=== PATIENT | female | born 2000 | race Two or more races ===

== ENCOUNTER 2020-05-07 22:20 | Emergency (ER) | payer OTHER, SELFPAY ==
--- NOTE | 2020-05-07 | XR_ITS ---
EXAMINATION: ABDOMEN 1 VIEW CLINICAL INFORMATION: Overdose. COMPARISON: None. TECHNIQUE: A supine view of the abdomen is provided. FINDINGS: There are no dilated loops of small bowel. There are no air-fluid levels. There is a moderate amount of stool within the ascending colon. The visualized lung bases are clear. The osseous structures are unremarkable. IMPRESSION: Moderate amount of stool within the ascending colon. No evidence for obstruction.
--- NOTE | 2020-05-07 | ECG_ITS ---
Test Reason : OVERDOSE Blood Pressure : / mmHG Vent. Rate : 075 BPM Atrial Rate : 075 BPM P-R Int : 130 ms QRS Dur : 080 ms QT Int : 420 ms P-R-T Axes : 043 050 030 degrees QTc Int : 469 ms Normal sinus rhythm Normal ECG No previous ECGs available Referred By: Vickie Brice Electronically Signed By:RUTHIE BECKFORD
--- NOTE | 2020-05-07 22:39 | ED_ITS ---
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 Tablet 8 mg PO BEDTIME RF: 0 loratadine 10 mg Tablet 10 mg PO DAILY RF: 0 magnesium oxide 400 mg magnesium Tablet 400 mg PO DAILY RF: 0 <Vickie Brice NP - Last Filed: 05/08/20 03:21>
[2020-05-07 22:40] VITALS: BP 122/72; PULSE 74; RESP 18; TEMP 37.1; O2SAT 98; BMI 48.4
--- NOTE | 2020-05-07 22:41 | XR_ITS ---
EXAMINATION: CHEST 1 VIEW CLINICAL INFORMATION: Overdose. COMPARISON: None. TECHNIQUE: An AP view of the chest is provided. FINDINGS: The cardiac silhouette is not enlarged. The mediastinal and hilar contours are unremarkable. There are neither pleural effusions nor pneumothoraces. There are no consolidations. The osseous structures are unremarkable. IMPRESSION: No evidence for acute disease.
[2020-05-07 22:49] VITALS: BP 103/71; PULSE 74; RESP 20; O2SAT 99
[2020-05-07 23:37] LABS: MANUAL DIFF FLAG NO
[2020-05-07 23:40] LABS: Basophils Absolute Auto 0.1 X10*3/uL (0.0-0.2); Basophils Percent Auto 0.4 % (0-2); Eosinophils Absolute Auto 0.2 X10*3/uL (0.0-0.4); Eosinophils Percent Auto 1.8 % (0-4); Hematocrit 38.6 % (37-47); Hemoglobin 12.7 g/dl (12.0-16.0); Imm Gran Abs Auto 0.05 X10*3/uL (0.00-0.03); Imm Gran Pct Auto 0.4 % (0.0-0.4); Lymphocytes Absolute Auto 3.5 X10*3/uL (1.2-4.9); Lymphocytes Percent Auto 27.5 % (20-40); Mean Corpuscular HGB Conc 32.9 g/dl (31.0-35.0); Mean Corpuscular Volume 91.3 fL (80-98); Mean Platelet Volume 11.4 fL (9.4-12.3); Monocytes Absolute Auto 0.9 X10*3/uL (0.1-1.2); Monocytes Percent Auto 7.1 % (2-11); Neutrophils Absolute Auto 7.9 X10*3/uL (2.0-8.3); Neutrophils Percent Auto 62.8 % (45-73); Platelet Count 246 X10*3/uL (160-400); Red Blood Count 4.23 X10*6/uL (4.20-5.50); Red Cell Distribution Width 13.5 % (11.0-16.0); White Blood Count 12.6 X10*3/uL (4.8-10.8)
[2020-05-07 23:52] LABS: Glucose Urine UA NEG (NEG); Leukocyte Esterase Urine NEG (NEG); Nitrite Urine NEG (NEG); Specific Gravity - Urine 1.015 (1.005-1.025); Urine Blood 2+ (NEG); Urine Ketones NEG (NEG); Urine Protein NEG (NEG-TRACE)
[2020-05-07 23:54] LABS: Appearance Urine CLEAR; Color Urine YELLOW
[2020-05-07 23:58] LABS: Calcium 8.9 mg/dL (8.4-10.2)
[2020-05-08 00:07] LABS: Acetaminophen LAB < 1 mcg/mL (<30); Alanine Aminotransferase 9 U/L (0-31); Albumin Level 4.2 g/dL (3.5-5.0); Alkaline Phosphatase 99 U/L (39-117); Anion Gap 10 (12-20); Aspartate Amino Transferase 11 U/L (5-31); Bilirubin Direct < 0.2 mg/dL (0.0-0.5); Bilirubin Total 0.2 mg/dL (0.0-1.0); Blood Urea Nitrogen 12 mg/dL (9-16); Calcium 8.9 mg/dL (8.4-10.2); Carbon Dioxide 27 mmol/L (22-29); Chloride 105 mmol/L (96-108); Creatinine Clr Calc Pharmacy 145.3; Estimated Glomerular Filt Rate > 60; Glucose Random 94 mg/dL (60-115); Lipase 41 U/L (8-78); Magnesium 1.9 mg/dL (1.6-2.6); Potassium 4.1 mmol/l (3.3-5.1); Salicylate < 5.0 mg/dL (15-30); Sodium 138 mmol/L (135-145); Total Protein 6.9 g/dL (6.5-8.0)
[2020-05-08 00:08] LABS: Amphetamine Screen Urine Not Detected (Not Detect); Barbiturates, Urine Not Detected (Not Detect); Benzodiazepines Screen Urine Not Detected (Not Detect); Cannabinoid Screen Urine Not Detected (Not Detect); Cocaine Screen Urine Not Detected (Not Detect); Opiate Screen Urine Not Detected (Not Detect); Phencyclidine Screen Urine Not Detected (Not Detect); Troponin-I High Sensitivity < 3.5 ng/L (<3.5-17.0)
[2020-05-08 00:13] LABS: HCG Quantitative < 2 mIU/mL
[2020-05-08 01:06] LABS: Prothrombin Time 11.5 SEC (10.8-13.0)
[2020-05-08 01:08] VITALS: BP 100/70; PULSE 77; RESP 16; O2SAT 98
[2020-05-08 01:09] LABS: Partial Thromboplastin Time 33.8 SEC (24.1-38.0)
--- NOTE | 2020-05-08 01:15 | PC.NURSE ---
Pt continue to not respond to question on stimulation. vitals are stable. provider is aware and will continue monitor. Pt remain on tele monitor. Position controlled was called, continue to monitor for 6 hours.
[2020-05-08 01:31] LABS: Squamous Epithelial Cell Urine 1+ /LPF; WBC Urine 0 /HPF (0-4)
--- NOTE | 2020-05-08 02:15 | PC.NURSE ---
pt taken to x-ray. pt able to assist in transfer. pt reports she took too much of her sleeping medications because she hasn't slept for several nights. pt is clam and cooperative.
--- NOTE | 2020-05-08 02:31 | PC.NURSE ---
[facility] called, Documents faxed over. They will come in to see pt in the morning.
--- NOTE | 2020-05-08 04:09 | PC.NURSE ---
pt is sleeping at this time.
--- NOTE | 2020-05-08 04:16 | ECG_ITS ---
Test Reason : SI,OVERDOSE Blood Pressure : / mmHG Vent. Rate : 068 BPM Atrial Rate : 068 BPM P-R Int : 148 ms QRS Dur : 076 ms QT Int : 450 ms P-R-T Axes : 043 058 050 degrees QTc Int : 478 ms Normal sinus rhythm Normal ECG When compared with ECG of 07-MAY-2020 23:19, No significant change was found Referred By: Natalya Love Electronically Signed By:RUTHIE BECKFORD
--- NOTE | 2020-05-08 06:29 | PC.NURSE ---
WALK TRIAL, PT UNSTEADY AND STILL SLEEPY. PROVIDER IS AWARE AND CHARGE NURSE
[2020-05-08 06:33] VITALS: BP 90/60; PULSE 71; RESP 16; O2SAT 99
--- NOTE | 2020-05-08 11:17 | PC.NURSE ---
PT AMBULATORY TO THE POD WITH SECURITY PRESENT PT IS CALM AND CCOPERATIVE
--- NOTE | 2020-05-08 11:22 | PC.NURSE ---
Report received. PT ambulates in the pod with steady gait. Dispo pending.
--- NOTE | 2020-05-08 13:41 | PC.NURSE ---
PT is watching TV in the community room. Calm and cooperative with staff. No complaints at this time.
--- NOTE | 2020-05-08 15:23 | PC.NURSE ---
PT is on the phone attempting to call N. She was upset with plan after explaining it with her. Inpatient bed search in progress.
[2020-05-08 15:52] VITALS: BP 101/71; PULSE 74; RESP 16; TEMP 36.1
--- NOTE | 2020-05-08 18:23 | PC.NURSE ---
PT resting in bed. Calm and cooperative. Bed search in progress.
[2020-05-08] MEDS: traZODone HCL 100 MG TABLET 300 MG PO (21:20)
[2020-05-08] MEDS: Perphenazine 8 MG TABLET PO (21:20)
[2020-05-08] MEDS: Melatonin 3 MG TABLET PO (21:21)
--- NOTE | 2020-05-08 21:49 | PC.NURSE ---
pt cooperative, up once to use bathroom and inquire about her night medications. pharmacy reports that pt's clonidine and hydroxizine are non formulary and need to be changed?
[2020-05-08 22:09] VITALS: PULSE 78; RESP 16; O2SAT 96
[2020-05-09] VITALS (7 sets, daily range): BP systolic 93–116; BP diastolic 52–83; PULSE 75–89; RESP 16–20; TEMP 36.1–37.2; O2SAT 97–99
--- NOTE | 2020-05-09 07:14 | PC.NURSE ---
Report received. PT is sleeping in bed. Breathing is even and unlabored. Inpatient bed search in progress.
--- NOTE | 2020-05-09 09:16 | PC.NURSE ---
PT is sleeping in her bed. Breathing is even and unlabored. No other complaints.
--- NOTE | 2020-05-09 10:18 | PC.NURSE ---
eMAR updated by pharmacy. Non-formulary meds not given.
[2020-05-09] MEDS: Loratadine 10 MG TABLET PO (10:28)
[2020-05-09] MEDS: Magnesium Oxide 400 MG TABLET PO (10:28)
[2020-05-09] MEDS: FLUoxetine HCl 10 MG CAPSULE PO (10:28)
[2020-05-09] MEDS: hydrOXYzine HCL 50 MG TABLET PO ×3 (10:28→20:28)
--- NOTE | 2020-05-09 11:16 | PC.NURSE ---
PT sleeping in bed. Breathing is even and unlabored. No other complaints at this time.
--- NOTE | 2020-05-09 13:19 | PC.NURSE ---
PT is on the phone. Calm and cooperative. Informed on plan to be reevaluated by [facility] in the morning. No complaints at this time.
--- NOTE | 2020-05-09 17:33 | PC.NURSE ---
PT sitting in a lounge chair in the community room watching TV. Calm and cooperative. No complaints at this time.
[2020-05-09] MEDS: traZODone HCL 100 MG TABLET 300 MG PO (20:28)
[2020-05-09] MEDS: Perphenazine 8 MG TABLET PO (20:28)
[2020-05-09] MEDS: Melatonin 3 MG TABLET PO (20:29)
--- NOTE | 2020-05-09 20:32 | PC.NURSE ---
PATIENT OUT AND CAME TO DESK 3 TIMES STATING THAT SHE WANTED TO GO HOME. I EXPLAINED THAT SHE WAS ON SEC 12 AND WOULD BE RE-EVALUATED IN THE MORNING. PATIENT MEDICATED PER EMAR NOTED.
--- NOTE | 2020-05-09 20:38 | PC.NURSE ---
PATIENT NOT GIVEN NON FORUMULARY MEDICATION PATIENT IN BED RESTING AND NOT NECESSARY
--- NOTE | 2020-05-09 21:30 | PC.NURSE ---
SPOKE WITH PHARMACY REGARDING THIS MEDICATION ORDER. PER PHARMACY THIS MEDICATION IS NON FORMULARY BECAUSE IT IS EXTENDED RELEASE CLONIDINE. PATIENT WOULD HAVE TO BRING THIS IN FROM HOME. PATIENT IS CURRENTLY SLEEPING AT THIS TIME
--- NOTE | 2020-05-09 22:03 | PC.NURSE ---
HYDROXYZINE ON Oct. PATIENT WAS GIVEN HER DOSE SCHEDULED AT 2100. THE OTHER ORDER FOR HYDROXYZINE
[2020-05-10 01:09] VITALS: RESP 18
[2020-05-10 02:00] VITALS: RESP 15
[2020-05-10 04:01] VITALS: RESP 18
[2020-05-10 06:26] VITALS: BP 111/65; PULSE 88; RESP 18; TEMP 36.3; O2SAT 100
--- NOTE | 2020-05-10 07:21 | PC.NURSE ---
REPORT RECIEVED. PT CURRENTLY SLEEPING, RESPIRATIONS EVEN AND UNLABORED, IN NO APPARENT DISTRESS. PT IS YVETTE FOLLOW UP BY N THIS MORNING.
--- NOTE | 2020-05-10 09:40 | PC.NURSE ---
Pt calm and cooperative, denies complaints, denies SI/HI, states she just wants to go home. pt speaking with bhn at this time.
[2020-05-10 10:09] VITALS: BP 123/88; PULSE 100; RESP 17; TEMP 36.9; O2SAT 99
[2020-05-10] MEDS: Loratadine 10 MG TABLET PO (10:09)
[2020-05-10] MEDS: FLUoxetine HCl 10 MG CAPSULE PO (10:09)
[2020-05-10] MEDS: hydrOXYzine HCL 50 MG TABLET PO (10:09)
[2020-05-10 13:46] VITALS: BP 126/80; PULSE 119; RESP 16; TEMP 36.4; O2SAT 97
== END 2020-05-10 15:00 | disposition home or self-care (01) ==
PROVIDERS: Nurse Practitioner Family; Emergency Provider Student in an Organized Health Care Education/Training Program
DX: F33.2 Major depressive disorder, recurrent severe without psychotic features (principal); F43.12 Post-traumatic stress disorder, chronic; R45.851 Suicidal ideations; Z91.5 Personal history of self-harm; Z79.899 Other long term (current) drug therapy
CPT/HCPCS: 36415; 71045; 74018; 80048; 80076; 80307; 81001; 82310; 83690; 83735; 84484; 84702; 85025; 85610; 85611; 85730; 85732; 93005; 93010; 99285; 99291; G0480

== ENCOUNTER 2023-09-10 20:04 | Inpatient (IN) | payer MEDICAID, SELFPAY ==
[2023-09-10] VITALS (7 sets, daily range): BP systolic 104–164; BP diastolic 56–108; PULSE 87–97; RESP 18–24; TEMP 36.7–36.8; O2SAT 97–98; BMI 45.6
--- NOTE | ~2023-09-10 | FL_ITS ---
EXAMINATION: XR FLUOROSCOPY WITH IMAGES CLINICAL INFORMATION: Fluoroscopic guidance was provided to Dr. Kennedy during extraction of foreign body (razor blade) from the colon. COMPARISON: Correlation made with KUB dated earlier same day at 7:00 AM. TECHNIQUE: Fluoroscopy Supervised By: Dr. Francesco Kennedy. Fluoroscopy Time: 123.7 seconds. Cumulative Dose: 54.9 mGy. Images: 3. FINDINGS: 3 images intraoperative submitted. The first image demonstrates a curved hemostat directly abutting a linear razor blade within the region of the hepatic flexure. The second image demonstrates presence of a razor blade in the pelvis overlying the distal sigmoid/rectal region. The third submitted image shows a gaseous distended splenic flexure, with no evidence of radiopaque foreign body seen. FL/FL guidance in OR IMPRESSION: Intraoperative fluoroscopic guidance images as above.
--- NOTE | ~2023-09-10 | XR_ITS ---
EXAMINATION: XR ABDOMEN KUB CLINICAL INDICATION: Razor blades and GI tract COMPARISON: KUB to 624 at 3:32 AM TECHNIQUE: AP view of the abdomen. XR/XR KUB FINDINGS/IMPRESSION: There are 3 amberly ablates visualized at this time on the right upper quadrant and right epigastric region. They could very well be within the right colon or proximal small bowel loops. Recommend continued follow-up
--- NOTE | ~2023-09-10 | XR_ITS ---
EXAMINATION: XR ABDOMEN KUB CLINICAL INDICATION: Ingested foreign body follow-up COMPARISON: 09/11/2023 TECHNIQUE: AP view of the abdomen. FINDINGS: The previously noted ingested foreign bodies which were seen predominantly in the right upper quadrant on yesterday's exam are again observed. 2 radiodense foreign bodies remain in the right colon and have the appearance of a razor blades. One previously noted foreign body now situated in the descending colon. XR/XR KUB IMPRESSION: 1 of the 3 ingested razor blades now overlies the descending colon.
--- NOTE | ~2023-09-10 | CT_ITS ---
EXAMINATION: CT ABDOMEN AND PELVIS WITHOUT CONTRAST CLINICAL INFORMATION: Question perforation. Swallowed bleed. COMPARISON: None available. TECHNIQUE: Multidetector volumetric imaging was performed from the superior aspect of the liver through the pubic symphysis. Sagittal and coronal reformatted images were obtained on the technologist's workstation. This CT examination was performed using dose optimization techniques as appropriate, variously including the following: *Automated exposure control *Adjustment of mA and/or kV according to patient size (this includes techniques or standardized protocols for targeted exams where dose is matched to indication/reason for exam; i.e. extremities or head) *Use of iterative reconstruction technique DLP: 9086 mGy-cm FINDINGS: The exam is limited secondary to patient breathing artifact and motion throughout the exam. LUNG BASES: The visualized lung bases are unremarkable. LIVER, GALLBLADDER, AND BILIARY TREE: The liver is normal in size, shape, and attenuation. No focal hepatic lesion or biliary ductal dilatation is present. The gallbladder is unremarkable with no evidence of radiopaque gallstones, gallbladder wall thickening, or obvious pericholecystic inflammatory changes. PANCREAS: Unremarkable. SPLEEN: Unremarkable. ADRENAL GLANDS: Unremarkable. KIDNEYS AND URETERS: The kidneys are normal in size, shape, and attenuation. No hydronephrosis, hydroureter, or calculi seen. No perinephric stranding. BLADDER: Unremarkable GASTROINTESTINAL TRACT: There is moderate stool and gas seen throughout the colon and small bowel without distention. There are 2 radiopaque blades seen in the stomach producing beam hardening artifact. There is no free air seen in the abdomen. There is no free fluid seen either. ABDOMINAL WALL: No significant hernia is appreciated. LYMPH NODES: Normal. VASCULAR: Unremarkable. PELVIC VISCERA: The uterus is anteverted and appears unremarkable. OSSEOUS STRUCTURES: No gross bony abnormality. CT/CT abdomen pelvis wo IV con IMPRESSION: 2 radiopaque blades seen in the stomach producing beam hardening artifact. There is no free air or free fluid seen at this time on this limited exam. Fleischner guidelines were followed.
--- NOTE | ~2023-09-10 | XR_ITS ---
EXAMINATION: XR ABDOMEN KUB CLINICAL INDICATION: Swallowed blades.. COMPARISON: None available. TECHNIQUE: AP view of the abdomen. FINDINGS: There are 2 radiopaque bladelike material seen in the stomach. No additional radiopaque foreign body seen except for scattered stool and gas seen in colon and gas in the small bowel loops without distention. No organomegaly. No gross bony abnormality. XR/XR KUB IMPRESSION: 2 radiopaque linear blade shaped foreign body seen in the stomach. The bowel gas pattern is nonspecific.
--- NOTE | ~2023-09-10 | CT_ITS ---
EXAMINATION: CT ABDOMEN AND PELVIS WITHOUT CONTRAST CLINICAL INFORMATION: Follow-up for ingested foreign body COMPARISON: 09/10/2023 CT. 11/06/03 and 09/11/03 KUB TECHNIQUE: Multidetector volumetric imaging was performed from the superior aspect of the liver through the pubic symphysis. Sagittal and coronal reformatted images were obtained on the technologist's workstation. Study limited by patient's inability to cooperate and remain still. This CT examination was performed using dose optimization techniques as appropriate, variously including the following: *Automated exposure control *Adjustment of mA and/or kV according to patient size (this includes techniques or standardized protocols for targeted exams where dose is matched to indication/reason for exam; i.e. extremities or head) *Use of iterative reconstruction technique DLP: 1145 mGy-cm FINDINGS: ANIMAL CONTROL LICENSING WORKER: Nonspecific bowel pattern. Linear metallic densities right upper, right mid and left upper quadrants. Pelvic phleboliths. LUNG BASES: Nonenlarged heart. No pericardial effusion. 1 evaluation of the lung bases limited by respiratory motion.. LIVER, GALLBLADDER, AND BILIARY TREE: The liver is normal in size, shape, and attenuation. No focal hepatic lesion or biliary ductal dilatation is present. The gallbladder is unremarkable with no evidence of radiopaque gallstones, gallbladder wall thickening, or obvious pericholecystic inflammatory changes. PANCREAS: Unremarkable. SPLEEN: Unremarkable. ADRENAL GLANDS: Unremarkable. KIDNEYS AND URETERS: The kidneys are normal in size, shape, and attenuation. No hydronephrosis or hydroureter. 2-3 mm nonobstructing left upper pole renal calculus. No perinephric stranding. BLADDER: Unremarkable. GASTROINTESTINAL TRACT: Stomach is not ideally distended. No CT evidence of bowel obstruction. Hyperdensities identified medial aspect of the cecum, axial 3:59, coronal 6:30, question anastomotic suture line. Region was poorly evaluated on previous CT due to extensive motion artifact and retained fecal material. 3 separate ingested metallic foreign bodies are seen. One in the cecum and another in the hepatic flexure with paralleling metallic double hernandez. The one in the mid to distal transverse colon with single linear metallic wall. Descending colon is decompressed. PERITONEUM: No free air or free fluid. ABDOMINAL WALL: No significant hernia is appreciated. LYMPH NODES: Normal. VASCULAR: Unremarkable. PELVIC VISCERA: Unremarkable. Pelvic phleboliths. OSSEOUS STRUCTURES: Unremarkable. CT/CT abdomen pelvis wo IV con IMPRESSION: Study limitations due to patient's inability to cooperate. 3 ingested foreign bodies, 2 within the ascending colon, one in the transverse colon. No morphologic characteristics consistent with razor blades. Correlate clinically regarding hyperdensities at the medial base of the cecum, question previous appendectomy. 2-3 mm nonobstructing left renal calculus. Fleischner guidelines were followed.
--- NOTE | ~2023-09-10 | XR_ITS ---
EXAMINATION: XR ABDOMEN KUB CLINICAL INDICATION: Foreign body ingestion COMPARISON: CT abdomen and pelvis 09/10/2023. TECHNIQUE: AP view of the abdomen. FINDINGS: Previously seen 2 radiopaque metallic blades in the stomach have progressed and lying the right upper quadrant likely in the duodenum/proximal small bowel. However the also overlie the right colon/hepatic flexure. Continued follow-up KUB can be performed. No organomegaly. No bony abnormality. XR/XR KUB IMPRESSION: Progression of 2 radiopaque metallic foreign bodies from stomach into the proximal small bowel or duodenum. However there are also overlying the splenic flexure and possibly of midline within the splenic flexure is not excluded. Recommend continued follow-up.
--- NOTE | ~2023-09-10 | XR_ITS ---
EXAMINATION: XR CHEST CLINICAL INFORMATION: Swallowed razor blades COMPARISON: None available. TECHNIQUE: Frontal view of the chest was obtained. FINDINGS: The lungs are hypoexpanded and clear. The heart size and pulmonary vascularity is normal. There is a small metallic foreign body in the left epigastric region likely in the stomach. No gross bony abnormality seen. XR/XR chest 1V IMPRESSION: Small metallic foreign body in the left epigastric region likely in the stomach. No acute cardiopulmonary process.
--- NOTE | ~2023-09-10 | XR_ITS ---
EXAMINATION: XR ABDOMEN KUB CLINICAL INDICATION: Reassess number/location of foreign bodies COMPARISON: 09/12/2023 TECHNIQUE: AP view of the abdomen. FINDINGS: Currently, the 3 foreign bodies all appear to be in the region of the right lower quadrant, with 2 of them in close proximity to each other overlying the region of the right sacroiliac joint, and the third just above the level of the iliac crest. Overall bowel gas pattern is nonobstructive. There is limited assessment for free air with supine positioning. Multiple phleboliths again noted in the lower pelvis. XR/XR KUB IMPRESSION: 3 foreign bodies overlying the region of the right lower quadrant. It is possible that the 2 more inferior objects in close proximity to each other overlying the right sacroiliac joint may within the tortuous sigmoid colon, though this is difficult to precisely localize radiographically. The third object which lies superior to this may be within the ascending colon.
--- NOTE | ~2023-09-10 | FL_ITS ---
EXAMINATION: XR FLUOROSCOPY WITH IMAGES CLINICAL INFORMATION: Fluoroscopic guidance was provider to Dr. Kennedy during extraction of foreign body (2 razor blades) from the colon. COMPARISON: CT scan abdomen and pelvis 09/10/2023 TECHNIQUE: Fluoroscopy Supervised By: Dr. Francesco Kennedy. Fluoroscopy Time: 90.4 seconds. Cumulative Dose: 35.26 mGy. DAP: N/A on this C-arm Images: 4. FINDINGS: 4 intraoperative images were submitted. The first image demonstrates 2 razor blades in the right upper quadrant.. The second image demonstrates presence of 2 razor blades blades in the hepatic flexure. The third and fourth images demonstrates a tube within an air-filled viscus in the right upper quadrant/epigastric region with 2 razor blades r blade seen in the hepatic flexure. FL/FL guidance in OR IMPRESSION: Intraoperative fluoroscopic guidance images as above.
--- NOTE | ~2023-09-10 | XR_ITS ---
EXAMINATION: XR ABDOMEN KUB CLINICAL INDICATION: Follow-up for: Foreign bodies. COMPARISON: Several KUB NASCET abdomen 09/11/2023. TECHNIQUE: AP view of the abdomen. FINDINGS: There is significant gaseous prominence of colon with none of the previously visualized radiopaque foreign body at this time. XR/XR KUB IMPRESSION: No radiopaque razor blade seen in the colon. The entire colon is distended with gas.
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
--- NOTE | 2023-09-10 20:22 | ECG_ITS ---
Test Reason : SI Blood Pressure : / mmHG Vent. Rate : 096 BPM Atrial Rate : 096 BPM P-R Int : 128 ms QRS Dur : 076 ms QT Int : 384 ms P-R-T Axes : 061 055 035 degrees QTc Int : 485 ms Normal sinus rhythm Prolonged QT Abnormal ECG When compared with ECG of 08-MAY-2020 04:16, No significant change was found Referred By: Monet Hankins Electronically Signed By:ENOCH RESTREPO
[2023-09-10] MEDS: Haloperidol Lactate 5 MG/ML VIAL IM (20:38)
[2023-09-10] MEDS: diphenhydrAMINE HCL 50 MG/ML VIAL IM (20:39)
[2023-09-10] MEDS: Prochlorperazine Edisylate 10 MG/2 ML VIAL IM (20:39)
[2023-09-10] MEDS: Morphine Sulfate 4 MG/ML CARTRIDGE IM (20:39)
[2023-09-10] MEDS: 0.9 % Sodium Chloride 1,000 ML 999 ML IVCONT ×2 (20:43→22:59)
[2023-09-10 20:55] LABS: MANUAL DIFF FLAG NO
[2023-09-10 21:00] LABS: Basophils Percent Auto 0.3 % (0-2); Eosinophils Absolute Auto 0.1 X10*3/uL (0.0-0.4); Hematocrit 37.8 % (37.0-47.0); Hemoglobin 12.7 g/dl (12.0-16.0); Imm Gran Abs Auto 0.02 X10*3/uL (0.00-0.03); Imm Gran Pct Auto 0.2 % (0.0-0.4); Lymphocytes Percent Auto 24.6 % (20-40); Mean Corpuscular HGB Conc 33.6 g/dl (31.0-35.0); Mean Corpuscular Hemoglobin 29.2 pg (27.0-33.0); Mean Corpuscular Volume 86.9 fL (80.0-98.0); Mean Platelet Volume 10.4 fL (9.4-12.3); Monocytes Absolute Auto 0.7 X10*3/uL (0.1-1.2); Monocytes Percent Auto 5.6 % (2-11); Neutrophils Absolute Auto 8.4 x10*3/uL (2.0-8.3); Neutrophils Percent Auto 68.3 % (45-73); Platelet Count 274 X10*3/uL (160-400); Red Blood Count 4.35 X10*6/uL (4.20-5.50); Red Cell Distribution Width 13.4 % (11.0-16.0); White Blood Count 12.3 X10*3/uL (4.8-10.8)
--- NOTE | 2023-09-10 21:02 | MHC.EDTECH ---
This tech took over care of patient, patient was changed into crisis attire,placed on the conveyor monitor,vitals taken, EKG taken per order and signed by provider,labs and blood cultures obtained and sent to lab.
[2023-09-10 21:06] LABS: Prothrombin Time 12.2 SEC (11.1-13.3)
[2023-09-10 21:09] LABS: Lactic Acid 1.1 mmol/L (0.5-2.0)
--- NOTE | 2023-09-10 21:14 | MHC.EDTECH ---
Belongings list completed and locked in Locker 11 in the pod, Air Carrier Maintenance Inspector took home cellphone, watch,and keys. C
[2023-09-10 21:23] LABS: Alanine Aminotransferase 7 U/L (0-31); Albumin Level 4.2 g/dL (3.5-5.0); Alkaline Phosphatase 89 U/L (39-117); Anion Gap 13 (12-20); Aspartate Amino Transferase 12 U/L (5-31); Bilirubin Direct < 0.2 mg/dL (0.0-0.5); Bilirubin Total 0.2 mg/dL (0.0-1.0); Blood Urea Nitrogen 12 mg/dL (9-16); Calcium 9.3 mg/dL (8.4-10.2); Carbon Dioxide 21 mmol/L (22-29); Chloride 108 mmol/L (96-108); Creatinine Clr Calc Pharmacy 151.7; Estimated Glomerular Filt Rate > 60; Ethanol < 10 mg/dL; Glucose Random 99 mg/dL (60-115); HCG Quantitative 5 mIU/mL; Lipase 21 U/L (8-78); Magnesium 1.9 mg/dL (1.6-2.6); Potassium 3.7 mmol/L (3.3-5.1); Sodium 138 mmol/L (135-145); Total Protein 7.3 g/dL (6.5-8.0); Troponin-I High Sensitivity < 2.7 ng/L (<3.5-17.0)
[2023-09-10 21:46] LABS: Amphetamine Screen Urine Not Detected (Not Detect); Barbiturates, Urine Not Detected (Not Detect); Benzodiazepines Screen Urine Not Detected (Not Detect); Cannabinoid Screen Urine Not Detected (Not Detect); Cocaine Screen Urine Not Detected (Not Detect); Fentanyl, urine Not Detected (Not Detect); Opiate Screen Urine POSITIVE (Not Detect); Phencyclidine Screen Urine Not Detected (Not Detect)
--- NOTE | 2023-09-10 22:31 | PM.EVENT ---
Event Note Date of Service: 09/10/23 Event Note: GI Consult-Full note Dictated-Hx via ER staff and EMR Imp: Foreign body ingestion consisting of razor blades x 2. Imaging studies confirm their presence in the stomach. There is no free air. Rec: EGD with GA this evening to attempt removal and prevent distal migration in GI tract with potential for perforation and/or obstruction. Procedure is deemed emergent and we shall proceed without formal consent due to her being sedated and uncooperative, as well as no available family or guardian to give consent. Thanks Time Spent With Patient Time: Total time managing care of this patient today ____ minutes.
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
--- NOTE | 2023-09-10 23:09 | MHC.EDTECH ---
Patient being brought to the OR at this time, belongings will remain in Locker 11 in the pod per charge nurse
--- NOTE | 2023-09-10 23:35 | PC.NURSE ---
pt in OR when assuming this assignment
--- NOTE | 2023-09-10 23:35 | MHC.EDTECH ---
Patient in the OR at this time
[2023-09-11] VITALS (14 sets, daily range): BP systolic 98–132; BP diastolic 62–96; PULSE 76–125; RESP 16–20; TEMP 36.4–36.8; O2SAT 97–99; BMI 41.9
--- NOTE | 2023-09-11 00:43 | PM.EVENT ---
Event Note Date of Service: 09/11/23 Event Note: GI-Upper endoscopy with both a gastroscope and colonoscope to their full lengths with foreign body removal. The 2 razor blades had already migrated out of the stomach and distally into the small bowel or possibly the colon judging fluoroscopically. Under fluoro the 2 razor blades were clearly seen and were clearly distal to the colonoscope's furthest point of advancement. There was no evidence of mucosal injury in the UGI tract. I did remove a rectangular hard piece of pink plastic that I saw in the small bowel. This was pulled through an overtube. I am not sure what that was in relation to the razor blades. Rec: She will need to be observed and have a repeat abdominal xray at 6AM to reassess the location of the razor blades. Surgical consult to follow along in the event the razor blades do not move out on their own, and especially if they get hung up in the small intestine. Keep NPO for now. Psych to follow along as well. D/W Hospitalist service and with Dr. Moss. Thanks Time Spent With Patient Time: Total time managing care of this patient today ____ minutes.
--- NOTE | 2023-09-11 00:55 | P.BOP_ITS ---
Brief Operative Note Date of Service: 09/10/23 Pre-op diagnosis: Foreign body ingestion(Razor blades) Post-op diagnosis: same Procedure: EGD with removal of piece of plastic. Razor blades were not obtained Surgeon: Francesco Kennedy MD Anesthesia: GETA Was an Food Processing Plant Manager used for this Procedure?: No Estimated blood loss (mL): 0 Pathology: other (A. Piece of plastic foreign body removed from small intestine) Condition: stable Disposition: PACU
[2023-09-11] MEDS: 0.9 % Sodium Chloride 1,000 ML 100 ML IVCONT ×3 (01:13→20:39)
--- NOTE | 2023-09-11 02:01 | OP_ITS ---
DATE OF SERVICE: 09/10/2023 SURGEON: Francesco Kennedy MD INDICATIONS: The patient presents for evaluation of having swallowed 2 eyebrow razor blades. Formal consent was not able to be obtained as she had already been heavily sedated by the ER doctor, she was somewhat uncooperative, and there was no available family or guardian. The procedure was deemed an emergency given the situation and we proceeded. Her preceding x-rays had shown the razor blades to be in the stomach. Those imaging studies were about 2 hours before we started her procedures. PREOPERATIVE DIAGNOSIS: Foreign body ingestion. POSTOPERATIVE DIAGNOSIS: Foreign body ingestion. PROCEDURE PERFORMED: Esophagogastroduodenoscopy with both a gastroscope and colonoscope with removal of a small bowel foreign body. ESTIMATED BLOOD LOSS: COMPLICATIONS: ANESTHESIA: General anesthesia and glucagon 1 mg IV x 1 dose. ASSISTANTS: SPECIMENS: DESCRIPTION OF PROCEDURE: The patient was placed in the supine position. The overtube was back loaded onto the gastroscope. The gastroscope was then passed in the posterior oropharynx and upper esophagus under direct vision. The scope was entered into the stomach. Once the stomach was well visualized and the scope advanced, I then advanced the overtube over the gastroscope and into the esophagus until the tip of the overtube could be seen in the proximal stomach as the scope was retroflexed. The stomach was carefully inspected and no razor blades were seen. The small bowel was cannulated as far as the gastroscope would go and again no razor blades were seen. Using the fluoroscopy C-arm we were able to visualize the 2 razor blades to further down in the GI tract either in the small bowel or possibly in the colon. At that point, the gastroscope was withdrawn but leaving the overtube in place. I then passed the colonoscope through the overtube and into the small bowel as far as the colonoscope would go. The entire length of the colonoscope was able to be advanced into the small bowel. However, I was still not able to find the razor blades and under fluoroscopy the 2 razor blades were again clearly seen and not anywhere near the tip of the colonoscope. The razor blades may have already been in the colon. At that point, the colonoscope was withdrawn but in the small bowel was a rectangular pink piece of plastic material that I was able to grab with a snare and then bring out through the overtube. The overtube was then removed from the patient. She was then extubated and was returned to the recovery area in stable condition. IMPRESSION: 1. Removal of small bowel foreign body consisting of a piece of plastic. 2. Foreign body ingestion of 2 razor blades which were not removed and had passed further down the GI tract either in the small bowel or possibly in the colon. PLAN: Given the situation she will need to be admitted and observed. She will have a followup abdominal x-ray in the morning to see if we have a better idea as to where the 2 razor blades are. She will have surgical consultation in the event the razor blades get hung up in the GI tract. She will be kept n.p.o. She will need continued psychiatry followup as well. She will be admitted to the medical hospitalist service. This has been discussed with the hospitalist and with Dr. Moss. MD MONSE Moore/[place] / [id number] MTDD
[2023-09-11] MEDS: HYDROmorphone HCl 1 MG/ML SYRINGE 0.8 MG IVPUSH (02:35)
--- NOTE | 2023-09-11 03:12 | MHC.EDTECH ---
Hourly rounds and vitals completed,patient repositioned to comfort. 1-1 sitter at bedside
--- NOTE | 2023-09-11 03:23 | PC.NURSE ---
pt screaming in pain stating that it hurts more . Hospitalist made aware
--- NOTE | 2023-09-11 03:28 | PC.NURSE ---
hospitalist will order another xray to make sure there is not perforation.
[2023-09-11] MEDS: droPERidol 5 MG/2 ML VIAL 1.25 MG IVPUSH (03:49)
--- NOTE | 2023-09-11 04:03 | MHC.EDTECH ---
Patient was incont. of a large amount of urine,patient was cleaned and repositioned
--- NOTE | 2023-09-11 04:12 | CONS_ITS ---
DATE OF SERVICE: 09/10/2023 REASON FOR CONSULTATION: Foreign body ingestion. HISTORY OF PRESENT ILLNESS: This has been obtained strictly from the medical record and the ER staff. Apparently, the patient has been uncooperative with the ER staff and did require sedation. She is not really answering any of my questions. The patient is a 23-year-old female with underlying psychiatric history that is described as PTSD, who came to the ER tonight after swallowing 2 razor blades by her history. This has been confirmed on CT scan and abdominal x-rays. The patient has been having some abdominal discomfort, but it is not particularly specific about that. There is no evidence of any free air seen on the imaging studies. She has apparently had this history of swallowing foreign objects before. She was in the ER here in 2019 after an overdose with medications. There has been no report of vomiting nor any bleeding in the ER. MEDICATIONS: At home; that is not known, although back in 2019, she was on clonidine, fluoxetine, hydroxyzine pamoate, loratadine, magnesium oxide, melatonin, trazodone, and perphenazine. PAST MEDICAL HISTORY: PTSD. Anxiety. Bipolar disease. Sleep apnea. History of suicide attempts. I do not know any other medical or surgical history. SOCIAL HISTORY: Not available. FAMILY HISTORY: Not available. REVIEW OF SYSTEMS: Not obtainable. PHYSICAL EXAMINATION: GENERAL: The patient is obese female, who does answer some basic questions as to her name and how many razor blades she swallowed. However, other than that, she does not answer any of my other questions regarding her past medical history. SKIN: Warm and dry. Anicteric sclerae. CARDIAC: Normal S1 and S2. ABDOMEN: Soft. Normal bowel sounds. Nondistended, nontender. LABORATORY DATA: White blood cell count 12.3, hemoglobin 12.7, platelets 274,000. PT 12.2 with INR 1.0. Normal electrolytes. BUN 12, creatinine 0.8. Lactic acid level 1.1. Normal liver profile. Albumin 4.2. Lipase 21. Toxicology was positive for opiates. IMAGING: Abdominal x-ray report describes 2 radiopaque blade-like objects in the stomach. There was no other radiopaque foreign bodies seen and there was no free air. CT scan described similar findings in the stomach, and again no sign of any free air noted. IMPRESSION: The patient is a 23-year-old female with underlying psychiatric illness, who is presenting with foreign body ingestion of razor blades. At this point it would be important to try to remove those endoscopically since they are still in the stomach and they would most likely pose a danger if they were allowed to pass further into the gastrointestinal tract in regard to causing a perforation or obstruction. At this time a formal consent cannot be obtained as she has already been sedated, she is uncooperative, and there was no obvious guardian or family member available. I would deem this case to be an emergency and will proceed on that basis. The procedure will be done with general anesthesia. She will need psychiatric evaluation after this to determine further plans prior to discharge. MD MONSE Moore/[place] / [id number] MTDD
[2023-09-11] MEDS: diphenhydrAMINE HCL 50 MG/ML VIAL IVPUSH ×2 (04:19→13:55)
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
[2023-09-11 05:04] LABS: Hematocrit 37.4 % (37.0-47.0); Hemoglobin 12.4 g/dl (12.0-16.0); Mean Corpuscular HGB Conc 33.2 g/dl (31.0-35.0); Mean Corpuscular Hemoglobin 29.7 pg (27.0-33.0); Mean Corpuscular Volume 89.5 fL (80.0-98.0); Platelet Count 271 X10*3/uL (160-400); Red Blood Count 4.18 X10*6/uL (4.20-5.50); Red Cell Distribution Width 13.4 % (11.0-16.0); White Blood Count 13.6 X10*3/uL (4.8-10.8)
--- NOTE | 2023-09-11 06:17 | MHC.EDTECH ---
Patient placed on bedpan and urinated a large amount,patient was cleaned and repositioned to comfort,
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
[2023-09-11] MEDS: HYDROmorphone HCl 0.5 MG/0.5 ML SYRINGE IVPUSH ×3 (07:45→16:10)
--- NOTE | 2023-09-11 07:46 | PC.NURSE ---
patient a&o, vitals previously stable, Ivf running per order, pt previously changed over to [facility] attire, pt to have kub xray, pt medicated with dilaudid for 8/10 abd pain, call stephens within reach, will continue to monitor.
--- NOTE | 2023-09-11 10:07 | PC.NURSE ---
patient a&ox3, vss, pt c/o 04/15 pain not due for medication as of yet, pt currently denying si/hi, 1:1 sitter at bedside, call stephens within reach, ivf running per order, will continue to monitor
--- NOTE | 2023-09-11 11:02 | PC.NURSE ---
pt c/o 05/15 pain, messaged dr. beard as pt isnt due for pt yet.
--- NOTE | 2023-09-11 11:23 | PC.NURSE ---
pt medicated for pain per order
--- NOTE | 2023-09-11 12:16 | PM.EVENT ---
Event Note Date of Service: 09/12/23 Event Note: physical exam unchanged pt still asks for pain meds - moaning, as baseline from last night does not provide any details of history abd soft stable VS ffup KUB - 3 razor blades, separately; all in right RUQ; could be in colon already? will order for ffup CT reviewed with Dr Kennedy Time Spent With Patient Time: Total time managing care of this patient today ____ minutes.
--- NOTE | 2023-09-11 12:40 | PHA.MEDREC ---
Pharmacy Consult ? Medication Reconciliation Pharmacy has completed the medication reconciliation with pt pharmacy and doctor's office. Patient unreliable due to psych issues and blades in stomach, called pharmacy and they only confirmed a some medications. Rest of medications confirmed from provider's office, faxed medication list from most recent visit 09/07/23 as refelcted on confirmed meds.
--- NOTE | 2023-09-11 13:01 | PC.NURSE ---
pt currently sleeping, wakes to verbal stimulus, ivf running per order, pt denying si/hi, sitter at bedside, call stephens within reach, will continue to monitor
--- NOTE | 2023-09-11 13:18 | PC.NURSE ---
this nurse found the patient attempting to eat dressing from lab draw that was on her arm, pt attempting to eat ekg stickers and core java engineer stickers that were on her chest. pt continuing to refuse CT scan.
--- NOTE | 2023-09-11 13:37 | PC.NURSE ---
pt attempting to remove IV site/eating iv.
[2023-09-11] MEDS: Haloperidol Lactate 5 MG/ML VIAL IM (13:55)
--- NOTE | 2023-09-11 14:27 | P.PNIM_ITS ---
Subjective Subjective Date of Service: 09/11/23 Interval History: Abdominal pain Review of Systems KUB reviewed, no fever has abd pain, intermittent agitated Physical Exam 2 Vital Signs: Vital Signs: Last Vital Signs Temp 98.1 F 09/11/23 13:40 Pulse 78 09/11/23 13:40 Resp 18 09/11/23 13:40 BP 124/62 09/11/23 13:40 Pulse Ox 97 09/11/23 13:40 O2 Del Method Room Air 09/11/23 13:40 BMI result Body Mass Index 45.6 limited exam; Appearance: Alert.? Oriented X3.?agitated cvs: rrr, [id number]. res: clear to auscultation ,no rhonchii or wheezing abd: no rebound or guarding ,nt, bs present. ext pulses present , no cyanosis. neuro: axo3 , nonfocal. Objective Data Active Medications Acetaminophen (Acetaminophen 325 Mg Tablet) 975 mg PO Q6H PRN PRN Reason: Pain, Mild (Pain Scale 1-3) Hydromorphone HCl (Hydromorphone Hcl 0.5 Mg/0.5 Ml Syringe) 0.5 mg IVPUSH Q4H PRN; Protocol PRN Reason: Pain, Severe (Pain Scale 7-10) Last Admin: 09/11/23 07:45 Dose: 0.5 mg Documented By: CELIA Sodium Chloride (Ns) 1,000 mls @ 100 mls/hr IVCONT .Q10H [facility] Last Admin: 09/11/23 10:06 Dose: 100 mls/hr Documented By: CELIA Sodium Chloride (0.9 % Sodium Chloride Flush 3 Ml Syringe) 3 ml IVFLUSH QSHIFT [facility] Last Admin: 09/11/23 07:48 Dose: Not Given Documented By: CELIA Non-Admin Reason: IV Running Labs 09/11/23 04:14 09/10/23 20:49 Labs: Laboratory Results - last 24 hr 09/10/23 09/10/23 09/11/23 20:49 21:30 04:14 MCV 86.9 89.5 MCH 29.2 29.7 MCHC 33.6 33.2 RDW 13.4 13.4 Plt Count 274 271 MPV 10.4 11.0 Immature Gran % (Auto) 0.2 Neut % (Auto) 68.3 Lymph % (Auto) 24.6 [place] % (Auto) 5.6 Eos % (Auto) 1.0 Baso % (Auto) 0.3 Lymph # (Auto) 3.0 [place] # (Auto) 0.7 Eos # (Auto) 0.1 Baso # (Auto) 0.0 Abs Immat Gran (auto) 0.02 Absolute Neuts (auto) 8.4 H Absolute Nucleated RBC 0.000 0.000 Nucleated RBC % (auto) 0.0 0.0 PT 12.2 INR 1.0 Anion Gap 13 Estim Creat Clear Calc 151.7 Estimated GFR > 60 Random Glucose 99 Lactic Acid 1.1 Calcium 9.3 Magnesium 1.9 Total Bilirubin 0.2 Direct Bilirubin < 0.2 AST 12 ALT 7 Alkaline Phosphatase 89 Total Protein 7.3 Albumin 4.2 Lipase 21 Beta HCG, Quant 5 Urine Opiates Screen POSITIVE H Urine Fentanyl Screen Not Detected Ur Barbiturates Screen Not Detected Ur Phencyclidine Scrn Not Detected Ur Amphetamines Screen Not Detected U Benzodiazepines Scrn Not Detected Urine Cocaine Screen Not Detected U Marijuana (THC) Screen Not Detected Ethyl Alcohol < 10 Assessment and Plan (1) Suicide attempt: Status: Acute (2) Acute anxiety: Status: Acute (3) Foreign body, swallowed: Status: Acute Plan 23 years old woman presents with: Foreign body ingestion; Keep in observation. Keep NPO. Appreciate GI and surgery services input. had kub and ct scan- 3 ingested foreign bodies, 2 within the ascending colon, one in the transverse colon. No morphologic characteristics consistent with razor blades. npo patient has egd last night-removal rectangular hard piece of pink plastic small bowel and may need colonscopy lina,pain management with dilaudid. psych eval -for agitation ; added [place] halodol. has bipolar and anxiety ;home meds are at hold due to above, keep npo.IVf concern of suiccidal attemp; Sectioned 12 placed in the ED. Psychiatric consult. Her Bhcg is 5; d/w Picking Tech -likely false elevated ,repeat in 2 days DVT prophylaxis: SCDs only ongoing hospitalization need; the ingestion of two blades-may need colonoscopy in am as well as psychiatry evaluation. Quality Stroke Does the patient have a stroke diagnosis?: No VTE Prior VTE?: No VTE Risk Level:: Medical - moderate - high VTE Device Contraindication: N/A - Device Ordered VTE Drug Contraindication: Treatment Not Indicated
--- NOTE | 2023-09-11 14:45 | PM.EVENT ---
Event Note Date of Service: 09/12/23 Event Note: pt has been refusing CT scan - explained to her purpose is to localize where the razor blades are she remains anxious and uncooperative - has been biting/ trying to eat objects at bedside abd remains benign vitals stable will try to convince her to do CT scan otherwise repeat KUB in AM if foreign bodies are in the colon - may be amenable to colonoscopic retrieval with overtube Time Spent With Patient Time: Total time managing care of this patient today ____ minutes.
--- NOTE | 2023-09-11 16:06 | PM.EVENT ---
Event Note Date of Service: 09/11/23 Event Note: GI-Course noted and imaging reviewed. Case D/W Dr. Moss Agree with current plan of F/U imaging to try to get a more definitive location of the razor blades. At this point, if they are still in the small bowel, then I think surgery would be the best option for removal rather than continued observation. On the other hand, if they have already moved into the colon then it will be worth waiting for them to pass spontaneously or attempt extraction via colonoscopy, although I suspect she may not cooperate with the prep which could make things more challenging in regard to a colonoscopy. Ideally a CT would be the best imaging F/U, but due to lack of cooperation we may need to proceed with just a plain abdominal film. If not already in the works, we should have Psych services see her to comment on her competency and to see if there are any treatment options available to help with her cooperation. Thanks Time Spent With Patient Time: Total time managing care of this patient today ____ minutes.
[2023-09-11] MEDS: 0.9 % Sodium Chloride Flush 3 ML SYRINGE IVFLUSH (16:10)
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
--- NOTE | 2023-09-11 16:23 | PC.NURSE ---
Addendum entered by Cande Durbin RN 09/11/23 17:12: To maintain pt safety all unnecessary items have been removed from the bedside and off pts person. Per ED report pt was eating band aids and EKG stickers. Pt has ID bracelet for identification red fall risk socks on. Red fall risk star outside of room. Original Note: Pt arrived to unit at approximately 1555, at this time pt alert to self, place, and time. Pt LS clear throughout, no edema noted, abd soft & tender, +BS all 4 quads. Pt has scattered scars on forearms and legs, skin otherwise intact. Pt was able to ambulate to the bathroom with standby assistance to void. Vital signs stable. Pt endorsing pain, PRN Dilaudid given, pending effectiveness. Pt has 1:1 sitter and camera in room for safety.
[2023-09-11] MEDS: polyethylene glycoL 3350 17 GM POWD.PACK PO (17:25)
[2023-09-11] MEDS: ondansetron HCL 4 MG/2 ML VIAL IVPUSH (18:26)
[2023-09-11] MEDS: HYDROmorphone HCl 0.5 MG/0.5 ML SYRINGE 1 MG IVPUSH ×2 (18:26→21:35)
[2023-09-11] MEDS: cloNIDine HCL 0.1 MG TABLET 0.3 MG PO (21:36)
[2023-09-11] MEDS: traZODone HCL 100 MG TABLET 300 MG PO (21:36)
[2023-09-11] MEDS: Melatonin 3 MG TABLET 9 MG PO (21:43)
[2023-09-12] MEDS: HYDROmorphone HCl 0.5 MG/0.5 ML SYRINGE 1 MG IVPUSH ×6 (02:22→21:17)
[2023-09-12 03:52] VITALS: BP 104/75; PULSE 78; RESP 18; TEMP 37.1; O2SAT 97
[2023-09-12] MEDS: 0.9 % Sodium Chloride 1,000 ML 100 ML IVCONT ×3 (05:48→20:08)
[2023-09-12 07:07] VITALS: BP 114/74; PULSE 78; RESP 16; TEMP 37; O2SAT 99
[2023-09-12] MEDS: Ferrous Sulfate 324 MG TABLET.DR PO (07:38)
[2023-09-12] MEDS: Acetaminophen 325 MG TABLET 975 MG PO (07:38)
--- NOTE | 2023-09-12 08:27 | PM.PNGS ---
Subjective Subjective Date of Service: 09/13/23 Interval history: asleep, has been comfortable Physical Exam Vital Signs: Vital Signs: Last Vital Signs Temp 98.6 F 09/12/23 07:07 Pulse 78 09/12/23 07:07 Resp 16 09/12/23 07:07 BP 114/74 09/12/23 07:07 Pulse Ox 99 09/12/23 07:07 O2 Del Method Room Air 09/12/23 07:07 BMI result Body Mass Index 41.9 Const: General: comfortable and no acute distress Resp: Effort & Inspection: normal respiratory effort GI: Palpation (GI): Soft to palpation and not firm Objective Data Active Medications Acetaminophen (Acetaminophen 325 Mg Tablet) 975 mg PO Q6H PRN PRN Reason: Pain, Mild (Pain Scale 1-3) Last Admin: 09/12/23 07:38 Dose: 975 mg Documented By: TREY Clonidine HCl (Clonidine Hcl 0.1 Mg Tablet) 0.3 mg PO BEDTIME [place]; Protocol Last Admin: 09/11/23 21:36 Dose: 0.3 mg Documented By: KOURTNEY Ferrous Sulfate (Ferrous Sulfate 324 Mg Tablet.) 324 mg PO DAILY [facility] Last Admin: 09/12/23 07:38 Dose: 324 mg Documented By: TREY Haloperidol (Haloperidol 5 Mg Tablet) 5 mg PO BID PRN PRN Reason: Agitation Hydromorphone HCl (Hydromorphone Hcl 0.5 Mg/0.5 Ml Syringe) 1 mg IVPUSH Q3H PRN; Protocol PRN Reason: Pain, Severe (Pain Scale 7-10) Last Admin: 09/12/23 05:48 Dose: 1 mg Documented By: KOURTNEY Sodium Chloride (Ns) 1,000 mls @ 100 mls/hr IVCONT .Q10H [place] Last Admin: 09/12/23 05:48 Dose: 100 mls/hr Documented By: KOURTNEY Melatonin (Melatonin 3 Mg Tablet) 6 mg PO BEDTIME PRN PRN Reason: Insomnia Melatonin (Melatonin 3 Mg Tablet) 9 mg PO BEDTIME [place] Last Admin: 09/11/23 21:43 Dose: 9 mg Documented By: KOURTNEY Ondansetron HCl (Ondansetron Hcl 4 Mg/2 Ml Vial) 4 mg IVPUSH Q8H PRN PRN Reason: Nausea and Vomiting Last Admin: 09/11/23 18:26 Dose: 4 mg Documented By: BENTON Polyethylene Glycol (Polyethylene Glycol 3350 17 Gm Powd.Pack) 17 gm PO QID [facility] Last Admin: 09/12/23 00:06 Dose: Not Given Documented By: KOURTNEY Non-Admin Reason: Patient Refused Quetiapine Fumarate (Quetiapine Fumarate 25 Mg Tablet) 25 mg PO BID [facility] Sodium Chloride (0.9 % Sodium Chloride Flush 3 Ml Syringe) 3 ml IVFLUSH QSHIFT [facility] Last Admin: 09/12/23 00:06 Dose: Not Given Documented By: KOURTNEY Non-Admin Reason: IV Running Trazodone HCl (Trazodone Hcl 100 Mg Tablet) 300 mg PO BEDTIME [facility] Last Admin: 09/11/23 21:36 Dose: 300 mg Documented By: KOURTNEY Labs 09/11/23 04:14 09/10/23 20:49 Microbiology Microbiology Results: Microbiology 09/10/23 20:51 Blood Culture - Preliminary Blood - Venous No growth after 24 hours. 09/10/23 20:49 Blood Culture - Preliminary Blood - Venous No growth after 24 hours. Procedures Date of Service Date of Service: 09/13/23 Progress Note: A&P Assessment and plan (1) Foreign body, swallowed: Status: Acute Assessment and Plan: ffup Ct shows the razor blades to be in the right colon x2, and one in the distal transverse will continue to follow KUB today if blades reach rectum - possibly retrieve with overtube exam benign GI following as well Time Spent With Patient Time: Total time managing care of this patient today ____ minutes. Quality Stroke Does the patient have a stroke diagnosis?: No VTE Prior VTE?: No VTE Risk Level:: Medical - moderate - high VTE Device Contraindication: N/A - Device Ordered VTE Drug Contraindication: Treatment Not Indicated
[2023-09-12] MEDS: polyethylene glycoL 3350 17 GM POWD.PACK PO ×3 (10:42→16:30)
[2023-09-12] MEDS: diphenhydrAMINE HCL 25 MG CAPSULE 50 MG PO (13:09)
[2023-09-12] MEDS: HaloperidoL 5 MG TABLET PO (13:09)
--- NOTE | 2023-09-12 14:36 | MHC.CM.PN ---
Patient is from home alone. Functionally independent, no DME. States she has a correctional case records supervisor through [facility], but cannot recall name/contact info. PCP: Erika Khan PA-C No HCP. CM provided education and offered assistance. Patient considering. DP: Awaiting psych eval. Home self care vs. inpatient psych. CM will continue to follow for dc needs.
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
[2023-09-12 15:34] VITALS: BP 104/72; PULSE 89; RESP 18; TEMP 36.6; O2SAT 98
--- NOTE | 2023-09-12 16:04 | HO.PM.IMPN ---
Subjective Subjective Date of Service: 09/13/23 Interval History: Abdominal pain Review of Systems has abd pain, intermittent agitated Physical Exam Vital Signs: Vital Signs: Last Vital Signs Temp 98 F 09/12/23 15:34 Pulse 89 09/12/23 15:34 Resp 18 09/12/23 15:34 BP 104/72 09/12/23 15:34 Pulse Ox 98 09/12/23 15:34 O2 Del Method Room Air 09/12/23 15:34 BMI result Body Mass Index 41.9 Appearance: Alert.? Oriented X3.?agitated cvs: rrr, [id number]. res: clear to auscultation ,no rhonchii or wheezing abd: no rebound or guarding ,nt, bs present. ext pulses present , no cyanosis. neuro: axo3 , nonfocal. Objective Data Active Medications Acetaminophen (Acetaminophen 325 Mg Tablet) 975 mg PO Q6H PRN PRN Reason: Pain, Mild (Pain Scale 1-3) Last Admin: 09/12/23 07:38 Dose: 975 mg Documented By: TREY Clonazepam (Clonazepam 0.5 Mg Tablet) 0.5 mg PO BID [place] Clonidine HCl (Clonidine Hcl 0.1 Mg Tablet) 0.3 mg PO BEDTIME [place]; Protocol Last Admin: 09/11/23 21:36 Dose: 0.3 mg Documented By: KOURTNEY Hydromorphone HCl (Hydromorphone Hcl 0.5 Mg/0.5 Ml Syringe) 1 mg IVPUSH Q3H PRN; Protocol PRN Reason: Pain, Severe (Pain Scale 7-10) Last Admin: 09/12/23 14:05 Dose: 1 mg Documented By: TREY Sodium Chloride (Ns) 1,000 mls @ 100 mls/hr IVCONT .Q10H [place] Last Admin: 09/12/23 05:48 Dose: 100 mls/hr Documented By: KOURTNEY Melatonin (Melatonin 3 Mg Tablet) 6 mg PO BEDTIME PRN PRN Reason: Insomnia Melatonin (Melatonin 3 Mg Tablet) 9 mg PO BEDTIME [place] Last Admin: 09/11/23 21:43 Dose: 9 mg Documented By: KOURTNEY Olanzapine (Olanzapine Odt 10 Mg Tab.Rapdis) 10 mg TRANSLINGU BID PRN PRN Reason: agitation Ondansetron HCl (Ondansetron Hcl 4 Mg/2 Ml Vial) 4 mg IVPUSH Q8H PRN PRN Reason: Nausea and Vomiting Last Admin: 09/11/23 18:26 Dose: 4 mg Documented By: BENTON Polyethylene Glycol (Polyethylene Glycol 3350 17 Gm Powd.Pack) 17 gm PO QID ON LICENSE OF [facility] Last Admin: 09/12/23 13:09 Dose: 17 gm Documented By: TREY Sodium Chloride (0.9 % Sodium Chloride Flush 3 Ml Syringe) 3 ml IVFLUSH QSHIFT ON LICENSE OF [facility] Last Admin: 09/12/23 09:38 Dose: Not Given Documented By: TREY Non-Admin Reason: IV Running Trazodone HCl (Trazodone Hcl 100 Mg Tablet) 300 mg PO BEDTIME ON LICENSE OF [facility] Last Admin: 09/11/23 21:36 Dose: 300 mg Documented By: KOURTNEY Cano 09/11/23 04:14 09/13/23 10:19 Microbiology Microbiology Results: Microbiology 09/10/23 20:51 Blood Culture - Preliminary Blood - Venous No growth after 24 hours. 09/10/23 20:49 Blood Culture - Preliminary Blood - Venous No growth after 24 hours. Assessment and Plan (1) PTSD (post-traumatic stress disorder): Status: Acute (2) Foreign body, swallowed: Status: Acute Plan 23 years old woman presents with: Foreign body ingestion; Keep in observation. Keep NPO. Appreciate GI and surgery services input. had kub and ct scan- 3 ingested foreign bodies, 2 within the ascending colon, one in the transverse colon. No morphologic characteristics consistent with razor blades. kub today-1 of the 3 ingested razor blades now overlies the descending colon. npo patient has egd last night-removal rectangular hard piece of pink plastic small bowel and may need colonscopy lina,pain management with dilaudid. psych eval -for agitation ; added [place] halodol. has bipolar and anxiety ;home meds are at hold due to above, keep npo.IVf concern of suiccidal attemp; Sectioned 12 placed in the ED. Psychiatric consult. Her Bhcg is 5; d/w Bin Tripper Operator -question if false elevated ,repeat in am. DVT prophylaxis: SCDs only ongoing hospitalization need; the ingestion of two blades-may need colonoscopy in am as well as psychiatry evaluation. Quality Stroke Does the patient have a stroke diagnosis?: No VTE Prior VTE?: No VTE Risk Level:: Medical - moderate - high VTE Device Contraindication: N/A - Device Ordered VTE Drug Contraindication: Treatment Not Indicated
[2023-09-12] MEDS: clonazePAM 0.5 MG TABLET PO ×2 (16:30→21:17)
[2023-09-12 18:40] LABS: HCG Quantitative < 2 mIU/mL
--- NOTE | 2023-09-12 18:51 | PM.EVENT ---
Event Note Date of Service: 09/12/23 Event Note: GI Followup. Course noted and today's xray reviewed. The three foreign bodies are all in the colon. Two of them are in the ascending colon and 1 is in the sigmoid/descending colon. She has been receiving Miralax. She will have a repeat KUB in the AM 09/13 to reassess the number and location of the foreign bodies. I have scheduled her for a colonoscopy for 09/13 in the afternoon as I do think we will have to plan to remove them by colonoscopy. This will be done in the OR with MAC or GA, as well as with Fluoroscopy assistance. Thanks Time Spent With Patient Time: Total time managing care of this patient today ____ minutes.
--- NOTE | 2023-09-12 19:11 | P.CDIM_ITS ---
PROVIDER RESPONSE TEXT: To clarify, the appropriate diagnosis supported by the clinical indicators: Obesity Due to excess calories QUERY TEXT: PHYSICIAN'S DOCUMENTATION REQUEST Date of Query: 09/12/2023 12:08 PM EST Patient Name: ANA HERNANDEZ I Admit Date: 09/11/2023 Dear Junie Winn, A review of the medical record indicates additional documentation may be needed. Please review below and update the documentation accordingly. Clinical Indicators: Height: ( ) 5'8 Weight: ( ) 124.9 kg BMI: ( ) 41.9kg Other Clinical Notes Supporting Significance of the BMI: Per Nutritional Risk Assessment 09/12/23: on therapeutic diet If possible, please provide an associated diagnosis related to the abnormal BMI, such as: Overweight Obesity Due to excess calories Obesity Drug induced Obesity Due to other cause Specify the other cause Severe or Morbid Obesity With alveolar hypoventilation Severe or Morbid Obesity Without alveolar hypoventilation BMI is not significant Other (explain) Clinically unable to determine (explain) Thank you, Teresa Anaya RN Use of terms such as suspected, likely, concern for, or probable (associated with a specific diagnosi s that is being evaluated, monitored, or treated as if it exists) are acceptable and can be coded in the inpatient se tting, when documented at the time of discharge. Please use your independent medical judgment in providing your response. THIS QUERY IS PART OF THE PERMANENT MEDICAL RECORD
[2023-09-12 19:46] VITALS: BP 110/59; PULSE 70; RESP 18; TEMP 36.5; O2SAT 99
[2023-09-12] MEDS: PEG 3350/Na Sulf,Bicarb,Cl/KCL 4,000 ML SOLN.RECON 4000 ML PO (20:30)
[2023-09-12] MEDS: ondansetron HCL 4 MG/2 ML VIAL IVPUSH (21:10)
[2023-09-12] MEDS: traZODone HCL 100 MG TABLET 300 MG PO (21:17)
[2023-09-12] MEDS: cloNIDine HCL 0.1 MG TABLET 0.3 MG PO (21:17)
[2023-09-12] MEDS: Melatonin 3 MG TABLET 9 MG PO (21:18)
--- NOTE | 2023-09-12 23:32 | PC.NURSE ---
Pt belongings brought up from behavior health pod in ED where they were previously locked, by audiovisual tech, Pt was previously admitted to floor yesterday. Belongings handed to this RN, Belongings locked on [employer] in Pt belongings locker room- bottom right shelf, due to Pt's impulsivity and need for 1:1 sitter.
[2023-09-13] VITALS (10 sets, daily range): BP systolic 103–141; BP diastolic 57–82; PULSE 80–116; RESP 15–22; TEMP 36.1–38; O2SAT 95–100; BMI 41.6
--- NOTE | 2023-09-13 00:20 | PC.NURSE ---
Addendum entered by Kim Lua RN 09/13/23 04:12: Pt has completed 2/3 of bowel prep solution, Having watery light brown bowel movements at this time into a hat in bathroom, no foreign objects noted by this RN to have been expelled during any bowel movements, Pt refusing remaining bowel prep, will continue encouragement, Pt resting in bed with call stephens in reach, 1:1 sitter remains at bedside. Original Note: Pt has completed around half of the bowel prep, Pt has had one liquid brown bowel movement, Pt reluctant to continue with prep, will continue to encourage as tolerated by Pt. MD Dr Kennedy made aware Pt may not comply with bowel prep regimen. Pt continues to have 1:1 sitter, call stephens within reach.
[2023-09-13] MEDS: Prochlorperazine Edisylate 10 MG/2 ML VIAL 5 MG IVPUSH ×3 (01:16→16:55)
[2023-09-13] MEDS: HYDROmorphone HCl 0.5 MG/0.5 ML SYRINGE 1 MG IVPUSH ×4 (01:17→16:56)
[2023-09-13] MEDS: 0.9 % Sodium Chloride 1,000 ML 100 ML IVCONT ×2 (04:38→23:10)
--- NOTE | 2023-09-13 07:45 | P.PNGS_ITS ---
Subjective Subjective Date of Service: 09/13/23 Interval history: in good mood this morning - calm, answers some questions no events overnight Physical Exam 2 Vital Signs: Vital Signs: Last Vital Signs Temp 97.6 F 09/13/23 03:34 Pulse 90 09/13/23 03:34 Resp 17 09/13/23 03:34 BP 103/62 09/13/23 03:34 Pulse Ox 98 09/13/23 03:34 O2 Del Method Room Air 09/13/23 03:34 BMI result Body Mass Index 41.9 Const: Other: ambulating General: comfortable and no acute distress Resp: Effort & Inspection: normal respiratory effort GI: Palpation (GI): Soft to palpation, not firm and no guarding Objective Data Active Medications Acetaminophen (Acetaminophen 325 Mg Tablet) 975 mg PO Q6H PRN PRN Reason: Pain, Mild (Pain Scale 1-3) Last Admin: 09/12/23 07:38 Dose: 975 mg Documented By: TREY Clonazepam (Clonazepam 0.5 Mg Tablet) 0.5 mg PO BID [facility] Last Admin: 09/12/23 21:17 Dose: 0.5 mg Documented By: JUVENCIO Clonidine HCl (Clonidine Hcl 0.1 Mg Tablet) 0.3 mg PO BEDTIME [place]; Protocol Last Admin: 09/12/23 21:17 Dose: 0.3 mg Documented By: JUVENCIO Hydromorphone HCl (Hydromorphone Hcl 0.5 Mg/0.5 Ml Syringe) 1 mg IVPUSH Q3H PRN; Protocol PRN Reason: Pain, Severe (Pain Scale 7-10) Last Admin: 09/13/23 04:30 Dose: 1 mg Documented By: JUVENCIO Sodium Chloride (Ns) 1,000 mls @ 100 mls/hr IVCONT .Q10H [place] Last Admin: 09/13/23 04:38 Dose: 100 mls/hr Documented By: JUVENCIO Melatonin (Melatonin 3 Mg Tablet) 6 mg PO BEDTIME PRN PRN Reason: Insomnia Melatonin (Melatonin 3 Mg Tablet) 9 mg PO BEDTIME [place] Last Admin: 09/12/23 21:18 Dose: 9 mg Documented By: JUVENCIO Olanzapine (Olanzapine Odt 10 Mg Tab.Rapdis) 10 mg TRANSLINGU BID PRN PRN Reason: agitation Ondansetron HCl (Ondansetron Hcl 4 Mg/2 Ml Vial) 4 mg IVPUSH Q8H PRN PRN Reason: Nausea and Vomiting Last Admin: 09/12/23 21:10 Dose: 4 mg Documented By: JUVENCIO Prochlorperazine Edisylate (Prochlorperazine Edisylate 10 Mg/2 Ml Vial) 5 mg IVPUSH Q6H PRN PRN Reason: Nausea and Vomiting Last Admin: 09/13/23 01:16 Dose: 5 mg Documented By: JUVENCIO Sodium Chloride (0.9 % Sodium Chloride Flush 3 Ml Syringe) 3 ml IVFLUSH QSHIFT [facility] Last Admin: 09/12/23 22:02 Dose: Not Given Documented By: JUVENCIO Non-Admin Reason: IV Running Trazodone HCl (Trazodone Hcl 100 Mg Tablet) 300 mg PO BEDTIME [facility] Last Admin: 09/12/23 21:17 Dose: 300 mg Documented By: JUVENCIO Labs 09/11/23 04:14 09/10/23 20:49 Labs: Laboratory Results - last 24 hr 09/12/23 17:38 Beta HCG, Quant < 2 Microbiology Microbiology Results: Microbiology 09/10/23 20:51 Blood Culture - Preliminary Blood - Venous No growth after 48 hours. 09/10/23 20:49 Blood Culture - Preliminary Blood - Venous No growth after 48 hours. Procedures Date of Service Date of Service: 09/13/23 Progress Note: A&P Assessment and plan (1) Foreign body, swallowed: Status: Acute Assessment and Plan: three razor blades now in the colon for colonoscopy today with Dr Kennedy, hope to retrieve all 3 pt looks well exam remains benign in good mood today Time Spent With Patient Time: Total time managing care of this patient today ____ minutes. Quality Stroke Does the patient have a stroke diagnosis?: No VTE Prior VTE?: No VTE Risk Level:: Medical - moderate - high VTE Device Contraindication: N/A - Device Ordered VTE Drug Contraindication: Treatment Not Indicated
[2023-09-13] MEDS: clonazePAM 0.5 MG TABLET PO ×2 (08:03→23:08)
[2023-09-13] MEDS: 0.9 % Sodium Chloride Flush 3 ML SYRINGE IVFLUSH ×2 (08:04→20:21)
[2023-09-13 10:46] LABS: Anion Gap 12 (12-20); Blood Urea Nitrogen 10 mg/dL (9-16); Calcium 8.5 mg/dL (8.4-10.2); Carbon Dioxide 23 mmol/L (22-29); Chloride 107 mmol/L (96-108); Creatinine Clr Calc Pharmacy 155.6; Estimated Glomerular Filt Rate > 60; Glucose Fasting 70 mg/dL (60-99); Potassium 4.1 mmol/L (3.3-5.1); Sodium 138 mmol/L (135-145)
[2023-09-13 10:50] LABS: HCG Quantitative < 2 mIU/mL
--- NOTE | 2023-09-13 12:26 | MHC.SHP ---
Pre-Procedural Eval Section A - 24 Hr Update-Section A only Date of Service: 09/13/23 The patient is an INPATIENT: Yes The patient has been examined within 24 hours of the surgical procedure. The History & Physical has been completed within 30 days and I have reviewed it.: Yes Section B - Complete if H&P > 30 days Chief Complaint: Foreign body in stomach Allergies: Allergies Allergy/AdvReac Type Severity Reaction Status Date / Time ziprasidone [From Geodon] Allergy Intermediate Facial Verified 05/08/20 01:58 Swelling Plan I have reviewed the history and physical and performed a pertinent physical examination on my patient. No changes have occurred unless specified. Time Spent With Patient Time: Total time managing care of this patient today ____ minutes.
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
--- NOTE | 2023-09-13 14:48 | P.PNIM_ITS ---
Subjective Subjective Date of Service: 09/13/23 Interval History: Abdominal pain Review of Systems has abd pain, intermittent agitated Physical Exam 2 Vital Signs: Vital Signs: Last Vital Signs Temp 100.4 F 09/13/23 13:02 Pulse 80 09/13/23 13:02 Resp 16 09/13/23 13:02 BP 120/82 09/13/23 13:02 Pulse Ox 98 09/13/23 13:02 O2 Del Method Room Air 09/13/23 13:02 BMI result Body Mass Index 41.6 Appearance: Alert.? Oriented X3. cvs: rrr, [id number]. res: clear to auscultation ,no rhonchii or wheezing abd: no rebound or guarding ,nt, bs present. ext pulses present , no cyanosis. neuro: axo3 , nonfocal. Objective Data Active Medications Acetaminophen (Acetaminophen 325 Mg Tablet) 975 mg PO Q6H PRN PRN Reason: Pain, Mild (Pain Scale 1-3) Last Admin: 09/12/23 07:38 Dose: 975 mg Documented By: TREY Acetaminophen (Acetaminophen 325 Mg Tablet) 650 mg PO ONCE PRN PRN Reason: Pain, Mild (Pain Scale 1-3) Clonazepam (Clonazepam 0.5 Mg Tablet) 0.5 mg PO BID [place] Last Admin: 09/13/23 08:03 Dose: 0.5 mg Documented By: KYRIE Clonidine HCl (Clonidine Hcl 0.1 Mg Tablet) 0.3 mg PO BEDTIME [place]; Protocol Last Admin: 09/12/23 21:17 Dose: 0.3 mg Documented By: JUVENCIO Hydromorphone HCl (Hydromorphone Hcl 0.5 Mg/0.5 Ml Syringe) 1 mg IVPUSH Q3H PRN; Protocol PRN Reason: Pain, Severe (Pain Scale 7-10) Last Admin: 09/13/23 08:03 Dose: 1 mg Documented By: KYRIE Sodium Chloride (Ns) 1,000 mls @ 100 mls/hr IVCONT .Q10H [place] Last Infusion: 09/13/23 12:29 Dose: 0 mls/hr Documented By: KYRIE Melatonin (Melatonin 3 Mg Tablet) 6 mg PO BEDTIME PRN PRN Reason: Insomnia Melatonin (Melatonin 3 Mg Tablet) 9 mg PO BEDTIME [place] Last Admin: 09/12/23 21:18 Dose: 9 mg Documented By: JUVENCIO Olanzapine (Olanzapine Odt 10 Mg Tab.Rapdis) 10 mg TRANSLINGU BID PRN PRN Reason: agitation Ondansetron HCl (Ondansetron Hcl 4 Mg/2 Ml Vial) 4 mg IVPUSH Q8H PRN PRN Reason: Nausea and Vomiting Last Admin: 09/12/23 21:10 Dose: 4 mg Documented By: JUVENCIO Ondansetron HCl (Ondansetron Hcl 4 Mg/2 Ml Vial) 4 mg IVPUSH ONCE PRN PRN Reason: Nausea and Vomiting Prochlorperazine Edisylate (Prochlorperazine Edisylate 10 Mg/2 Ml Vial) 5 mg IVPUSH Q6H PRN PRN Reason: Nausea and Vomiting Last Admin: 09/13/23 08:09 Dose: 5 mg Documented By: KYRIE Sodium Chloride (0.9 % Sodium Chloride Flush 3 Ml Syringe) 3 ml IVFLUSH QSHIFT [facility] Last Admin: 09/13/23 08:04 Dose: 3 ml Documented By: KYRIE Trazodone HCl (Trazodone Hcl 100 Mg Tablet) 300 mg PO BEDTIME [facility] Last Admin: 09/12/23 21:17 Dose: 300 mg Documented By: JUVENCIO Labs 09/11/23 04:14 09/13/23 10:19 Labs: Laboratory Results - last 24 hr 09/12/23 09/13/23 17:38 10:19 Anion Gap 12 Estim Creat Clear Calc 155.6 Estimated GFR > 60 Fasting Glucose 70 Calcium 8.5 D Beta HCG, Quant < 2 < 2 Microbiology Microbiology Results: Microbiology 09/10/23 20:51 Blood Culture - Preliminary Blood - Venous No growth after 48 hours. 09/10/23 20:49 Blood Culture - Preliminary Blood - Venous No growth after 48 hours. Assessment and Plan (1) Suicide attempt: Status: Acute (2) Foreign body, swallowed: Status: Acute Plan 23 years old woman presents with: Foreign body ingestion; Keep in observation. Keep NPO. Appreciate GI and surgery services input. had kub and ct scan- 3 ingested foreign bodies, 2 within the ascending colon, one in the transverse colon. No morphologic characteristics consistent with razor blades. kub today-1 of the 3 ingested razor blades now overlies the descending colon. npo patient has egd last night-removal rectangular hard piece of pink plastic small bowel and may need colonscopy lina,pain management with dilaudid. psych eval -for agitation ; added [place] halodol. has bipolar and anxiety ;home meds are at hold due to above, keep npo.IVf concern of suiccidal attemp; Sectioned 12 placed in the ED. Psychiatric consult. Her Bhcg is 5; d/w Health Program Director -repeated hcg <2 ,no further intervention. DVT prophylaxis: SCDs only ongoing hospitalization need; the ingestion of two blades-may need colonoscopy as well as psychiatry evaluation. Quality Stroke Does the patient have a stroke diagnosis?: No VTE Prior VTE?: No VTE Risk Level:: Medical - moderate - high VTE Device Contraindication: N/A - Device Ordered VTE Drug Contraindication: Treatment Not Indicated
--- NOTE | 2023-09-13 16:05 | PM.OP ---
Brief Operative Note Date of Service: 09/13/23 Pre-op diagnosis: Colon foreign bodies Post-op diagnosis: other (Same) Procedure: Colonoscopy to the cecum and TI with removal of 9 foreign bodies Surgeon: Francesco Kennedy MD Anesthesia: GETA Was an [employer] Cork used for this Procedure?: No Estimated blood loss (mL): 0 Pathology: other (A. Colonic foreign bodies) Condition: stable Disposition: PACU
--- NOTE | 2023-09-13 16:06 | PM.EVENT ---
Event Note Date of Service: 09/13/23 Event Note: Colonoscopy retrieval of multiple foreign bodies done successfully by Dr. Kennedy Multiple pieces of plastic and blunt metal objects removed No residual metallic objects seen on fluoro Patient tolerated procedure well Diet as tolerated Time Spent With Patient Time: Total time managing care of this patient today ____ minutes.
--- NOTE | 2023-09-13 16:06 | PM.EVENT ---
Event Note Date of Service: 09/13/23 Event Note: GI-Full note dictated Colonoscopy to the cecum and TI with removal of multiple foreign bodies. Findings: 1. Multiple pieces of plastic razor handles and 4 pieces of razor were removed from the patient by grabbing with a snare and using a foreign body nelson protector on the end of the scope. One piece was found in the proximal ascending colon and the others were distributed from the rectum to the descending colon. 2. Multiple passes were made in and out of the colon to remove all the pieces. 3. Final pass to the cecum and careful withdrawal did not reveal any other foreign bodies nor any mucosal injury. Plan: Check stat KUB tonight. If no residual foreign bodies are seen then her diet can be advanced tonight. Please call me if problems or questions. D/W patient. Thanks Time Spent With Patient Time: Total time managing care of this patient today ____ minutes.
--- NOTE | 2023-09-13 18:43 | PC.NURSE ---
Pt requesting to take a shower at change of shift, Pt is SI, educated that she needs to wait, sitter needs to be in arms length at all times. Pt posturing, Security called.. Pt de-escalated herself. Staff safety maintained.
[2023-09-13] MEDS: OLANZapine ODT 10 MG TAB.RAPDIS TRANSLINGU (19:40)
--- NOTE | 2023-09-13 20:06 | OP_ITS ---
DATE OF SERVICE: 09/13/2023 SURGEON: Francesco Kennedy MD INDICATIONS: The patient presents for followup of having ingested multiple foreign bodies(portions of eyebrow razors) with them remaining in the colon and in need of endoscopic removal. Full consent has been obtained from her for this, including risks of bleeding and perforation. PREOPERATIVE DIAGNOSIS: Foreign body ingestion. POSTOPERATIVE DIAGNOSIS: PROCEDURE PERFORMED: Colonoscopy to the cecum and terminal ileum with removal of multiple foreign bodies. ESTIMATED BLOOD LOSS: COMPLICATIONS: ANESTHESIA: General anesthesia. ASSISTANTS: SPECIMENS: POSTOPERATIVE DIAGNOSES: Foreign body ingestion, multiple colon foreign bodies removed. DESCRIPTION OF PROCEDURE: The patient was placed in the left lateral decubitus position. The digital rectal exam revealed no abnormalities. Using an Ygle video pediatric colonoscope with a foreign body retrieval nelson protector on the end of the scope, I entered the rectum. In the rectum were 2 or 3 foreign bodies, which were removed with grabbing them by the snare and withdrawing them from the patient. At least 1 hour was spent in further evaluating the colon with multiple passages to the cecum with removal of multiple pieces of the foreign bodies with the snare grabbing each piece and withdrawing it from the patient as they would go into the nelson protector. I was able to reach the cecum on each occasion including cannulation of the terminal ileum, which appeared normal. The cecum and ileocecal valve appeared normal. After the final piece was removed from the patient, excellent inspection of the colon was obtained with excellent preparation. I did not visualize any sign of other foreign bodies, mucosal injury, polyps, nor angiodysplasia. In the rectum, the scope was retroflexed visualizing internal hemorrhoids, but no other pathology. The rectal mucosa appeared normal. The scope was straightened and withdrawn from the patient. She tolerated the procedure well and was returned to the recovery area in stable condition. IMPRESSION: 1. Colon foreign bodies, status post endoscopic removal. 2. Small internal hemorrhoids. PLAN: The patient will have a followup KUB this evening. If indeed no further foreign bodies are seen and there is no sign of any free air, then her diet will be advanced. Hopefully, her psychiatric status will remain stable, and she will not have any further foreign body ingestions. I did review this in detail with her. MD MONSE Moore/[place] / [id number] MTDD
[2023-09-13] MEDS: diazePAM 10 MG/2 ML CARTRIDGE 3 MG IVPUSH (20:20)
[2023-09-13] MEDS: cloNIDine HCL 0.1 MG TABLET 0.3 MG PO (23:07)
[2023-09-13] MEDS: traZODone HCL 100 MG TABLET 300 MG PO (23:07)
[2023-09-13] MEDS: Melatonin 3 MG TABLET 9 MG PO (23:07)
[2023-09-14 08:00] VITALS: BP 108/61; PULSE 74; RESP 17; TEMP 37.2; O2SAT 97
--- NOTE | 2023-09-14 12:58 | MHC.CARE ---
Disposition for the pt is an inpatient bedsearch. 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 The number for the [facility] general office is [phone] opt 2.
--- NOTE | 2023-09-14 14:31 | MHC.CM.PN ---
EMR REVIEWED. INPATIENT BED SEARCH UNDERWAY WITH PSYCH. CM WILL CONTINUE TO FOLLOW FOR ANY CHANGE IN DCPLAN/NEEDS.
--- NOTE | 2023-09-14 14:32 | HO.POSTANES ---
Post Anesthesia Evaluation Post Anesthesia Evaluation Date of Service: 09/14/23 Vital Signs: Vital Signs Temp Pulse Resp BP Pulse Ox O2 Del Method 09/14/23 08:00 98.9 F 74 17 108/61 97 Room Air Anesthesia: General Endotracheal-GETA Mental Status: Awake Pain Control: Satisfactory Nausea/Vomiting: None Hydration: Adequate Anesthesia-Related Issues: No Anes. Related Issues
--- NOTE | 2023-09-14 15:09 | HO.PM.IMPN ---
Subjective Subjective Date of Service: 09/14/23 Interval History: Abdominal pain Review of Systems Abdominal pain resolved, No fever or chills or nausea vomiting. Physical Exam Vital Signs: Vital Signs: Last Vital Signs Temp 98.9 F 09/14/23 08:00 Pulse 74 09/14/23 08:00 Resp 17 09/14/23 08:00 BP 108/61 09/14/23 08:00 Pulse Ox 97 09/14/23 08:00 O2 Del Method Room Air 09/14/23 08:00 BMI result Body Mass Index 41.6 Appearance: Alert.? Oriented X3. cvs: [id number], [id number]. res: clear to auscultation ,no rhonchii or wheezing abd: no rebound or guarding ,nt, bs present. ext pulses present , no cyanosis. neuro: axo3 , nonfocal. Objective Data Active Medications Acetaminophen (Acetaminophen 325 Mg Tablet) 975 mg PO Q6H PRN PRN Reason: Pain, Mild (Pain Scale 1-3) Last Admin: 09/12/23 07:38 Dose: 975 mg Documented By: TREY Acetaminophen (Acetaminophen 325 Mg Tablet) 650 mg PO ONCE PRN PRN Reason: Pain, Mild (Pain Scale 1-3) Clonazepam (Clonazepam 0.5 Mg Tablet) 0.5 mg PO BID [facility]LY [facility], [facility] Last Admin: 09/14/23 12:45 Dose: Not Given Documented By: KYRIE Non-Admin Reason: Patient Asleep Clonidine HCl (Clonidine Hcl 0.1 Mg Tablet) 0.3 mg PO BEDTIME [facility], [facility]; Protocol Last Admin: 09/13/23 23:07 Dose: 0.3 mg Documented By: CHRIS Hydromorphone HCl (Hydromorphone Hcl 0.5 Mg/0.5 Ml Syringe) 1 mg IVPUSH Q3H PRN; Protocol PRN Reason: Pain, Severe (Pain Scale 7-10) Last Admin: 09/13/23 16:56 Dose: 1 mg Documented By: KYRIE Melatonin (Melatonin 3 Mg Tablet) 6 mg PO BEDTIME PRN PRN Reason: Insomnia Melatonin (Melatonin 3 Mg Tablet) 9 mg PO BEDTIME [facility], [facility] Last Admin: 09/13/23 23:07 Dose: 9 mg Documented By: CHRIS Olanzapine (Olanzapine Odt 10 Mg Tab.Rapdis) 10 mg TRANSLINGU BID PRN PRN Reason: agitation Last Admin: 09/13/23 19:40 Dose: 10 mg Documented By: CHRIS Ondansetron HCl (Ondansetron Hcl 4 Mg/2 Ml Vial) 4 mg IVPUSH Q8H PRN PRN Reason: Nausea and Vomiting Last Admin: 09/12/23 21:10 Dose: 4 mg Documented By: JUVENCIO Ondansetron HCl (Ondansetron Hcl 4 Mg/2 Ml Vial) 4 mg IVPUSH ONCE PRN PRN Reason: Nausea and Vomiting Prochlorperazine Edisylate (Prochlorperazine Edisylate 10 Mg/2 Ml Vial) 5 mg IVPUSH Q6H PRN PRN Reason: Nausea and Vomiting Last Admin: 09/13/23 16:55 Dose: 5 mg Documented By: KYRIE Sodium Chloride (0.9 % Sodium Chloride Flush 3 Ml Syringe) 3 ml IVFLUSH [facility] Last Admin: 09/14/23 08:54 Dose: Not Given Documented By: KYRIE Non-Admin Reason: IV Running Trazodone HCl (Trazodone Hcl 100 Mg Tablet) 300 mg PO BEDTIME [facility], [facility] Last Admin: 09/13/23 23:07 Dose: 300 mg Documented By: CHRIS Labs 09/11/23 04:14 09/13/23 10:19 Assessment and Plan (1) Suicide attempt: Status: Acute (2) Acute anxiety: Status: Acute (3) Foreign body, swallowed: Status: Acute Plan 23 years old woman presents with: Foreign body ingestion; Keep in observation. Keep NPO. Appreciate GI and surgery services input. patient has egd last night-removal rectangular hard piece of pink plastic small bowel and may need colonscopy lina,pain management with dilaudid. Had colonoscopy and KUB post colonoscopy-no residual foreign bodies are seen. Diet started patient is tolerating well. Abdominal pain resolved. concern of suiccidal attemp; Sectioned 12 placed in the ED. Discussed psych and care team-patient will need inpatient psych, sitter Patient can not sign against medical advice. Her Bhcg is 5; d/w Dentist/Owner -repeated hcg <2 ,no further intervention. DVT prophylaxis: SCDs only ongoing hospitalization need; patient need to go to inpatient psych, can not sign against medical advice. Quality Stroke Does the patient have a stroke diagnosis?: No VTE Prior VTE?: No VTE Risk Level:: Medical - moderate - high VTE Device Contraindication: N/A - Device Ordered VTE Drug Contraindication: Treatment Not Indicated
[2023-09-14 15:48] VITALS: BP 126/93; PULSE 96; RESP 18; TEMP 36.4; O2SAT 99
[2023-09-14] MEDS: diphenhydrAMINE HCL 25 MG CAPSULE PO (16:56)
[2023-09-14] MEDS: HaloperidoL 0.5 MG TABLET PO (16:56)
[2023-09-14] MEDS: 0.9 % Sodium Chloride Flush 3 ML SYRINGE IVFLUSH (16:57)
[2023-09-14] MEDS: OLANZapine ODT 10 MG TAB.RAPDIS TRANSLINGU (17:01)
[2023-09-14 20:00] VITALS: BP 110/58; PULSE 91; RESP 16; TEMP 36.5; O2SAT 98
[2023-09-14] MEDS: clonazePAM 0.5 MG TABLET PO (21:54)
[2023-09-14] MEDS: Melatonin 3 MG TABLET 9 MG PO (21:54)
[2023-09-14] MEDS: traZODone HCL 100 MG TABLET 300 MG PO (21:54)
[2023-09-14] MEDS: cloNIDine HCL 0.1 MG TABLET 0.3 MG PO (21:54)
[2023-09-15] MEDS: 0.9 % Sodium Chloride Flush 3 ML SYRINGE IVFLUSH ×3 (00:03→23:46)
[2023-09-15 03:14] VITALS: BP 98/53; PULSE 72; RESP 14; TEMP 36.8; O2SAT 99
[2023-09-15] MEDS: HaloperidoL 0.5 MG TABLET PO ×2 (06:40→19:35)
[2023-09-15] MEDS: OLANZapine ODT 10 MG TAB.RAPDIS TRANSLINGU ×2 (06:40→19:35)
--- NOTE | 2023-09-15 06:52 | PC.NURSE ---
patient transferred to dialysis approx [id number]
[2023-09-15 07:10] VITALS: BP 102/66; PULSE 68; RESP 14; TEMP 36.4; O2SAT 99
[2023-09-15] MEDS: clonazePAM 0.5 MG TABLET PO ×2 (08:28→21:46)
--- NOTE | 2023-09-15 10:29 | HO.PM.IMPN ---
Subjective Subjective Date of Service: 09/15/23 Interval History: Abdominal pain Review of Systems Abdominal pain resolved,No fever or chills or nausea vomiting. Physical Exam Vital Signs: Vital Signs: Last Vital Signs Temp 97.6 F 09/15/23 07:10 Pulse 68 09/15/23 07:10 Resp 14 09/15/23 07:10 BP 102/66 09/15/23 07:10 Pulse Ox 99 09/15/23 07:10 O2 Del Method Room Air 09/15/23 07:10 BMI result Body Mass Index 41.6 Appearance: Alert.? Oriented X3. cvs: rrr, [id number]. res: clear to auscultation ,no rhonchii or wheezing abd: no rebound or guarding ,nt, bs present. ext pulses present , no cyanosis. neuro: axo3 , nonfocal. Objective Data Active Medications Acetaminophen (Acetaminophen 325 Mg Tablet) 975 mg PO Q6H PRN PRN Reason: Pain, Mild (Pain Scale 1-3) Last Admin: 09/12/23 07:38 Dose: 975 mg Documented By: TREY Acetaminophen (Acetaminophen 325 Mg Tablet) 650 mg PO ONCE PRN PRN Reason: Pain, Mild (Pain Scale 1-3) Clonazepam (Clonazepam 0.5 Mg Tablet) 0.5 mg PO BID [facility]END[facility] SALE TO [facility] Last Admin: 09/15/23 08:28 Dose: 0.5 mg Documented By: YARON Clonidine HCl (Clonidine Hcl 0.1 Mg Tablet) 0.3 mg PO BEDTIME [place]; Protocol Last Admin: 09/14/23 21:54 Dose: 0.3 mg Documented By: ANNE Haloperidol (Haloperidol 0.5 Mg Tablet) 0.5 mg PO BID PRN PRN Reason: anxiety Last Admin: 09/15/23 06:40 Dose: 0.5 mg Documented By: CLIVE Hydromorphone HCl (Hydromorphone Hcl 0.5 Mg/0.5 Ml Syringe) 1 mg IVPUSH Q3H PRN; Protocol PRN Reason: Pain, Severe (Pain Scale 7-10) Last Admin: 09/13/23 16:56 Dose: 1 mg Documented By: KYRIE Melatonin (Melatonin 3 Mg Tablet) 6 mg PO BEDTIME PRN PRN Reason: Insomnia Melatonin (Melatonin 3 Mg Tablet) 9 mg PO BEDTIME [place] Last Admin: 09/14/23 21:54 Dose: 9 mg Documented By: ANNE Olanzapine (Olanzapine Odt 10 Mg Tab.Rapdis) 10 mg TRANSLINGU BID PRN PRN Reason: agitation Last Admin: 09/15/23 06:40 Dose: 10 mg Documented By: CLIVE Ondansetron HCl (Ondansetron Hcl 4 Mg/2 Ml Vial) 4 mg IVPUSH Q8H PRN PRN Reason: Nausea and Vomiting Last Admin: 09/12/23 21:10 Dose: 4 mg Documented By: JUVENCIO Ondansetron HCl (Ondansetron Hcl 4 Mg/2 Ml Vial) 4 mg IVPUSH ONCE PRN PRN Reason: Nausea and Vomiting Prochlorperazine Edisylate (Prochlorperazine Edisylate 10 Mg/2 Ml Vial) 5 mg IVPUSH Q6H PRN PRN Reason: Nausea and Vomiting Last Admin: 09/13/23 16:55 Dose: 5 mg Documented By: KYRIE Sodium Chloride (0.9 % Sodium Chloride Flush 3 Ml Syringe) 3 ml IVFLUSH [facility] PENDING SALE TO [facility] Last Admin: 09/15/23 08:31 Dose: Not Given Documented By: YARON Non-Admin Reason: Patient Asleep Trazodone HCl (Trazodone Hcl 100 Mg Tablet) 300 mg PO BEDTIME [facility] Last Admin: 09/14/23 21:54 Dose: 300 mg Documented By: ANNE Labs 09/11/23 04:14 09/13/23 10:19 Assessment and Plan (1) Suicide attempt: Status: Acute (2) Acute anxiety: Status: Acute (3) Foreign body, swallowed: Status: Acute Plan 23 years old woman presents with: Foreign body ingestion; Keep in observation. Keep NPO. Appreciate GI and surgery services input. patient has egd last night-removal rectangular hard piece of pink plastic small bowel and may need colonscopy lina,pain management with dilaudid. Had colonoscopy and KUB post colonoscopy-no residual foreign bodies are seen. Diet started patient is tolerating well. Abdominal pain resolved. concern of suiccidal attemp; Sectioned 12 placed in the ED. Discussed psych and care team-patient will need inpatient psych, sitter Patient can not sign against medical advice. 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 DVT prophylaxis: SCDs only ongoing hospitalization need; patient need to go to inpatient psych, can not sign against medical advice. Quality Stroke Does the patient have a stroke diagnosis?: No VTE Prior VTE?: No VTE Risk Level:: Medical - moderate - high VTE Device Contraindication: N/A - Device Ordered VTE Drug Contraindication: Treatment Not Indicated
[2023-09-15 15:17] VITALS: BP 124/71; PULSE 89; RESP 18; TEMP 36.3; O2SAT 98
[2023-09-15] MEDS: diphenhydrAMINE HCL 25 MG CAPSULE 50 MG PO (16:18)
[2023-09-15 19:02] VITALS: BP 121/91; PULSE 107; RESP 18; TEMP 36.7; O2SAT 100
[2023-09-15] MEDS: Melatonin 3 MG TABLET 9 MG PO (21:46)
[2023-09-15] MEDS: cloNIDine HCL 0.1 MG TABLET 0.3 MG PO (21:46)
[2023-09-15] MEDS: traZODone HCL 100 MG TABLET 300 MG PO (21:46)
[2023-09-15 23:38] VITALS: BP 128/64; PULSE 99; RESP 19; TEMP 36.8; O2SAT 96
[2023-09-15] MEDS: HYDROmorphone HCl 0.5 MG/0.5 ML SYRINGE 1 MG IVPUSH (23:45)
[2023-09-16 03:06] VITALS: BP 127/76; PULSE 99; RESP 18; TEMP 37.1; O2SAT 97
[2023-09-16 07:16] VITALS: BP 108/62; PULSE 68; RESP 14; TEMP 36.3; O2SAT 97
[2023-09-16] MEDS: HYDROmorphone HCl 0.5 MG/0.5 ML SYRINGE 1 MG IVPUSH ×3 (08:15→20:24)
[2023-09-16] MEDS: 0.9 % Sodium Chloride Flush 3 ML SYRINGE IVFLUSH ×2 (08:15→16:03)
[2023-09-16] MEDS: clonazePAM 0.5 MG TABLET PO ×2 (08:16→20:12)
--- NOTE | 2023-09-16 12:19 | HO.PM.IMPN ---
Subjective Subjective Date of Service: 09/16/23 Interval History: Abdominal pain Review of Systems no new c/o,intermittent anxious Physical Exam Vital Signs: Vital Signs: Last Vital Signs Temp 97.4 F 09/16/23 07:16 Pulse 68 09/16/23 07:16 Resp 14 09/16/23 07:16 BP 108/62 09/16/23 07:16 Pulse Ox 97 09/16/23 07:16 O2 Del Method Room Air 09/16/23 07:16 BMI result Body Mass Index 41.6 Appearance: Alert.? Oriented X3. cvs: rrr, [id number]. res: clear to auscultation ,no rhonchii or wheezing abd: no rebound or guarding ,nt, bs present. ext pulses present , no cyanosis. neuro: axo3 , nonfocal. Objective Data Active Medications Acetaminophen (Acetaminophen 325 Mg Tablet) 975 mg PO Q6H PRN PRN Reason: Pain, Mild (Pain Scale 1-3) Last Admin: 09/12/23 07:38 Dose: 975 mg Documented By: TREY Acetaminophen (Acetaminophen 325 Mg Tablet) 650 mg PO ONCE PRN PRN Reason: Pain, Mild (Pain Scale 1-3) Clonazepam (Clonazepam 0.5 Mg Tablet) 0.5 mg PO BID [facility] Last Admin: 09/16/23 08:16 Dose: 0.5 mg Documented By: YARON Clonidine HCl (Clonidine Hcl 0.1 Mg Tablet) 0.3 mg PO BEDTIME [place]; Protocol Last Admin: 09/15/23 21:46 Dose: 0.3 mg Documented By: CHRIS Haloperidol (Haloperidol 0.5 Mg Tablet) 0.5 mg PO BID PRN PRN Reason: anxiety Last Admin: 09/15/23 19:35 Dose: 0.5 mg Documented By: CHRIS Hydromorphone HCl (Hydromorphone Hcl 0.5 Mg/0.5 Ml Syringe) 1 mg IVPUSH Q3H PRN; Protocol PRN Reason: Pain, Severe (Pain Scale 7-10) Last Admin: 09/16/23 08:15 Dose: 1 mg Documented By: YARON Melatonin (Melatonin 3 Mg Tablet) 6 mg PO BEDTIME PRN PRN Reason: Insomnia Melatonin (Melatonin 3 Mg Tablet) 9 mg PO BEDTIME [place] Last Admin: 09/15/23 21:46 Dose: 9 mg Documented By: CHRIS Olanzapine (Olanzapine Odt 10 Mg Tab.Rapdis) 10 mg TRANSLINGU BID PRN PRN Reason: agitation Last Admin: 09/15/23 19:35 Dose: 10 mg Documented By: CHRIS Ondansetron HCl (Ondansetron Hcl 4 Mg/2 Ml Vial) 4 mg IVPUSH Q8H PRN PRN Reason: Nausea and Vomiting Last Admin: 09/12/23 21:10 Dose: 4 mg Documented By: JUVENCIO Ondansetron HCl (Ondansetron Hcl 4 Mg/2 Ml Vial) 4 mg IVPUSH ONCE PRN PRN Reason: Nausea and Vomiting Prochlorperazine Edisylate (Prochlorperazine Edisylate 10 Mg/2 Ml Vial) 5 mg IVPUSH Q6H PRN PRN Reason: Nausea and Vomiting Last Admin: 09/13/23 16:55 Dose: 5 mg Documented By: KYRIE Sodium Chloride (0.9 % Sodium Chloride Flush 3 Ml Syringe) 3 ml IVFLUSH [facility] Last Admin: 09/16/23 08:15 Dose: 3 ml Documented By: YARON Trazodone HCl (Trazodone Hcl 100 Mg Tablet) 300 mg PO BEDTIME [facility] Last Admin: 09/15/23 21:46 Dose: 300 mg Documented By: CHRIS Labs 09/11/23 04:14 09/13/23 10:19 Microbiology Microbiology Results: Microbiology 09/10/23 20:51 Blood Culture - Final Blood - Venous No growth after 5 days. 09/10/23 20:49 Blood Culture - Final Blood - Venous No growth after 5 days. Assessment and Plan (1) Suicide attempt: Status: Acute (2) Acute anxiety: Status: Acute (3) Foreign body, swallowed: Status: Acute Plan 23 years old woman presents with: Foreign body ingestion; Keep in observation. Keep NPO. Appreciate GI and surgery services input. patient has egd last night-removal rectangular hard piece of pink plastic small bowel and may need colonscopy lina,pain management with dilaudid. Had colonoscopy and KUB post colonoscopy-no residual foreign bodies are seen. Diet started patient is tolerating well. Abdominal pain resolved. concern of suiccidal attemp; Sectioned 12 placed in the ED. Discussed psych and care team-patient will need inpatient psych, sitter Patient can not sign against medical advice. 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 DVT prophylaxis: SCDs only ongoing hospitalization need; patient need to go to inpatient psych, can not sign against medical advice. Quality Stroke Does the patient have a stroke diagnosis?: No VTE Prior VTE?: No VTE Risk Level:: Medical - moderate - high VTE Device Contraindication: N/A - Device Ordered VTE Drug Contraindication: Treatment Not Indicated
[2023-09-16 15:41] VITALS: BP 105/55; PULSE 87; RESP 18; TEMP 36.8; O2SAT 96
[2023-09-16] MEDS: HaloperidoL 0.5 MG TABLET PO (16:12)
--- NOTE | 2023-09-16 16:39 | PC.NURSE ---
Admission called and requested that patient have UA and Covid test ordered today to be ready for discharge to Psych unit tomorrow,Dr. Winn notified
--- NOTE | 2023-09-16 17:17 | PC.NURSE ---
Bilateral nephrostomy tubes intact,drsgs intact,draining clear urine,no redness or swelling noted
[2023-09-16 18:04] LABS: COVID-19 Test Negative (Negative); IDNOW Serial# 152EDE1D
[2023-09-16 19:28] VITALS: BP 133/57; PULSE 100; RESP 20; TEMP 36.4; O2SAT 98
[2023-09-16] MEDS: Melatonin 3 MG TABLET 9 MG PO (20:11)
[2023-09-16] MEDS: traZODone HCL 100 MG TABLET 300 MG PO (20:11)
[2023-09-16] MEDS: cloNIDine HCL 0.1 MG TABLET 0.3 MG PO (20:12)
[2023-09-17] MEDS: HYDROmorphone HCl 0.5 MG/0.5 ML SYRINGE 1 MG IVPUSH ×3 (00:06→12:52)
[2023-09-17] MEDS: 0.9 % Sodium Chloride Flush 3 ML SYRINGE IVFLUSH ×2 (00:07→07:38)
[2023-09-17 03:43] VITALS: BP 123/58; PULSE 75; RESP 16; TEMP 36.1; O2SAT 95
[2023-09-17 06:24] LABS: Appearance Urine Clear; Color Urine Yellow; Glucose Urine UA Negative (Negative); Leukocyte Esterase Urine Trace (Negative); Nitrite Urine Negative (Negative); PH 6.5 (5.0-9.0); Specific Gravity - Urine 1.015 (1.005-1.025); UMIC TRIGGER UA YES; Urine Blood Negative (Negative); Urine Ketones Negative (Negative); Urine Protein Negative (Neg-Trace)
[2023-09-17 06:28] LABS: Bacteria Urine Trace (None Seen); Hyaline Casts Urine 0-2 /LPF (0-2); RBC Urine 0-2 /HPF (0-2); WBC Urine 0-5 /HPF (0-5)
[2023-09-17 07:05] VITALS: BP 104/58; PULSE 101; RESP 18; TEMP 36.1; O2SAT 98
[2023-09-17] MEDS: clonazePAM 0.5 MG TABLET PO (07:38)
--- NOTE | 2023-09-17 10:23 | P.PNIM_ITS ---
Subjective Subjective Date of Service: 09/17/23 Interval History: monitre off antibiotics Review of Systems no new c/o,intermittent anxious Physical Exam 2 Vital Signs: Vital Signs: Last Vital Signs Temp 97 F 09/17/23 07:05 Pulse 101 H 09/17/23 07:05 Resp 18 09/17/23 07:05 BP 104/58 L 09/17/23 07:05 Pulse Ox 98 09/17/23 07:05 O2 Del Method Room Air 09/17/23 07:05 BMI result Body Mass Index 41.6 Appearance: Alert.? Oriented X3. cvs: rrr, [id number]. res: clear to auscultation ,no rhonchii or wheezing abd: no rebound or guarding ,nt, bs present. ext pulses present , no cyanosis. neuro: axo3 , nonfocal. Objective Data Active Medications Acetaminophen (Acetaminophen 325 Mg Tablet) 975 mg PO Q6H PRN PRN Reason: Pain, Mild (Pain Scale 1-3) Last Admin: 09/12/23 07:38 Dose: 975 mg Documented By: TREY Acetaminophen (Acetaminophen 325 Mg Tablet) 650 mg PO ONCE PRN PRN Reason: Pain, Mild (Pain Scale 1-3) Clonazepam (Clonazepam 0.5 Mg Tablet) 0.5 mg PO BID [place] Last Admin: 09/17/23 07:38 Dose: 0.5 mg Documented By: SNEHA Clonidine HCl (Clonidine Hcl 0.1 Mg Tablet) 0.3 mg PO BEDTIME [place]; Protocol Last Admin: 09/16/23 20:12 Dose: 0.3 mg Documented By: AMAURY Haloperidol (Haloperidol 0.5 Mg Tablet) 0.5 mg PO BID PRN PRN Reason: anxiety Last Admin: 09/16/23 16:12 Dose: 0.5 mg Documented By: AMAURY Hydromorphone HCl (Hydromorphone Hcl 0.5 Mg/0.5 Ml Syringe) 1 mg IVPUSH Q3H PRN; Protocol PRN Reason: Pain, Severe (Pain Scale 7-10) Last Admin: 09/17/23 07:37 Dose: 1 mg Documented By: SNEHA Melatonin (Melatonin 3 Mg Tablet) 6 mg PO BEDTIME PRN PRN Reason: Insomnia Melatonin (Melatonin 3 Mg Tablet) 9 mg PO BEDTIME [place] Last Admin: 09/16/23 20:11 Dose: 9 mg Documented By: AMAURY Olanzapine (Olanzapine Odt 10 Mg Tab.Rapdis) 10 mg TRANSLINGU BID PRN PRN Reason: agitation Last Admin: 09/15/23 19:35 Dose: 10 mg Documented By: CHRIS Ondansetron HCl (Ondansetron Hcl 4 Mg/2 Ml Vial) 4 mg IVPUSH Q8H PRN PRN Reason: Nausea and Vomiting Last Admin: 09/12/23 21:10 Dose: 4 mg Documented By: JUVENCIO Ondansetron HCl (Ondansetron Hcl 4 Mg/2 Ml Vial) 4 mg IVPUSH ONCE PRN PRN Reason: Nausea and Vomiting Prochlorperazine Edisylate (Prochlorperazine Edisylate 10 Mg/2 Ml Vial) 5 mg IVPUSH Q6H PRN PRN Reason: Nausea and Vomiting Last Admin: 09/13/23 16:55 Dose: 5 mg Documented By: KYRIE Sodium Chloride (0.9 % Sodium Chloride Flush 3 Ml Syringe) 3 ml IVFLUSH [facility] Last Admin: 09/17/23 07:38 Dose: 3 ml Documented By: SNEHA Trazodone HCl (Trazodone Hcl 100 Mg Tablet) 300 mg PO BEDTIME [facility] Last Admin: 09/16/23 20:11 Dose: 300 mg Documented By: AMAURY Labs 09/11/23 04:14 09/13/23 10:19 Labs: Laboratory Results - last 24 hr 09/16/23 09/16/23 06:00 17:38 Urine Color Yellow Urine Appearance Clear Urine pH 6.5 Ur Specific Geraldine 1.015 Urine Protein Negative Urine Glucose (UA) Negative Urine Ketones Negative Urine Blood Negative Urine Nitrite Negative Ur Leukocyte Esterase Trace H Urine RBC 0-2 Urine WBC 0-5 Ur Squamous Epith Cells 3-5 Urine Bacteria Trace Hyaline Casts 0-2 COVID-19 ([facility]) Negative COVID-19 Clin Com See Note Assessment and Plan (1) Suicide attempt: Status: Acute (2) Acute anxiety: Status: Acute (3) Foreign body, swallowed: Status: Acute Plan 23 years old woman presents with: Foreign body ingestion; Keep in observation. Keep NPO. Appreciate GI and surgery services input. patient has egd last night-removal rectangular hard piece of pink plastic small bowel and may need colonscopy lina,pain management with dilaudid. Had colonoscopy and KUB post colonoscopy-no residual foreign bodies are seen. Diet started patient is tolerating well. Abdominal pain resolved. concern of suiccidal attemp; Sectioned 12 placed in the ED. Discussed psych and care team-patient will need inpatient psych, sitter Patient can not sign against medical advice. 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 DVT prophylaxis: SCDs only ongoing hospitalization need; patient need to go to inpatient psych, can not sign against medical advice. Quality Stroke Does the patient have a stroke diagnosis?: No VTE Prior VTE?: No VTE Risk Level:: Medical - moderate - high VTE Device Contraindication: N/A - Device Ordered VTE Drug Contraindication: Treatment Not Indicated
--- NOTE | 2023-09-17 11:58 | PC.NURSE ---
Pt continues to come to the nurses station to interrupt staff about going to psych floor. Pt ambulated to room and attempted by this medical underwriter to redirect and explain the situation. Pt overtly emotional and unable to educate at this time. Sitter with patinet for SI.
--- NOTE | 2023-09-17 12:25 | MHC.CM.PN ---
per rounds pt will need a psych placement and is ready for d
[2023-09-17] MEDS: diphenhydrAMINE HCL 25 MG CAPSULE 50 MG PO (13:38)
[2023-09-17] MEDS: HaloperidoL 0.5 MG TABLET PO (13:38)
[2023-09-17 15:20] VITALS: BP 147/81; PULSE 81; RESP 18; TEMP 36.3; O2SAT 96
--- NOTE | 2023-09-17 15:42 | MHC.CM.PN ---
pt dcd home no servies
--- NOTE | 2023-09-17 15:45 | P.DS_ITS ---
DS: Providers Provider Date of Service: 09/17/23 Date of admission: 09/11/23 00:44 Date of discharge: 09/17/23 Primary care physician: Erika Khan PA-C Consults: 09/10/23 20:22 Consult to Care Team Stat Comment: Reason for consultation: swallowed a razor 09/10/23 21:35 Consult to Care Team Routine Comment: Reason for consultation: swallowed blades 09/11/23 00:44 Consult to General Surgery Routine Consulting Provider: Nam Moss Reason for consultation: Foreign body in stomach Has provider been notified: Yes 09/11/23 12:30 Consult to Gastroenterology Routine Consulting Provider: Francesco Kennedy Reason for consultation: Foreign body ingestion Has provider been notified: No 09/11/23 13:30 Consult to Psychiatry Routine Consulting Provider: Psych Covering Reason for consultation: behavioural agitation Has provider been notified: No 09/11/23 13:33 Consult to Psychiatry Stat Consulting Provider: Psych Covering Reason for consultation: behavioural agiatation/ptsd,succidal attemp Has provider been notified: No 09/11/23 13:40 Consult for Sitter Routine Reason for consultation: behavioural agitaion Has provider been notified: No 09/14/23 08:43 Consult to Care Team Stat Comment: Reason for consultation: Medical clear for psych placement Attending physician on discharge: Junie Winn Discharging clinician: Junie Winn DS: Diagnosis Discharge Diagnosis (1) Suicide attempt: Status: Acute (2) Acute anxiety: Status: Acute (3) Foreign body, swallowed: Status: Acute DS: Summary Hospital Course Hospital Course: 23 years old woman with past medical history significant for bipolar disorder and PTSD presents to the emergency department after the ingestion of to blades after a disagreement with the child's paternal grandmother. HPI was difficult to obtain detailed as the patient was moaning and persistently complaining of diffuse abdominal pain. She swallowed 2 blades before arriving to the hospital. It is unclear to me if her intention was to commit suicide. In the ED, patient was found to have normal vital signs. Blood workup showed no anemia or significant electrolyte imbalances. Renal and liver function are normal. test is negative. Urinalysis showed microscopic hematuria. Urine drug screen is positive for opiates. Imaging including KUB and abdominen and pelvis CT scan showed 2 radiopaque linear blade shape for a body seen in the stomach without free air or free fluid. ED tx: Benadryl 50 mg IV, droperidol 1.25 mg IV, NS 2 L bolus, Benadryl 50 mg IM, a total of 8 mg of morphine IM, Compazine [address] Kennedy from GI service performed a upper endoscopy with both a gastroscope and colonoscope. The razor blades already migrated out of the stoma and distally into the small bowel or possibly into the colon; are unable to retrieve the blades. Recommend admit for observation and to repeat a KUB in the morning to reassess the location of the razor blades. Case was discussed with Dr. Moss ROM the surgical service in case the razor blades do not move out of their own. Hospital course: Patient was admitted for foreign body ingestion with razor blades she tried to do possible suicidal attemp: Patient was placed on bowel rest, NPO, subsequently patient has ED EGD and colonoscopy and post colonoscopy films show no residual foreign body. Subsequently patient tolerated diet abdominal pain resolved. Due to concern of suicidal attempt patient was seen by psych : Cleared by psych, discussed with psych-continue patient's home medications, if any further need for medication change then consider clonazepam p.r.n. as per outpatient psych provider. plan: continue home psych medications.discussed with psych Dr Cooley -continue patient's home medications, if any further need for medication change then consider clonazepam p.r.n. as per outpatient psych provider. Assessment and plan coordination time spent 50 minute. Time Attestation Discharge coordination time: Greater than 30 minutes Quality: Safe Use of Opioids Does Pt have an Active Cancer Diagnosis on the Problem List?: No Quality: Stroke Does the patient have a stroke diagnosis?: No Physical Exam Vital Signs: Vital Signs: Last Vital Signs Temp 97.3 F 09/17/23 15:20 Pulse 81 09/17/23 15:20 Resp 18 09/17/23 15:20 BP 147/81 H 09/17/23 15:20 Pulse Ox 96 09/17/23 15:20 O2 Del Method Room Air 09/17/23 15:20 BMI result Body Mass Index 41.6 Appearance: Alert.? Oriented X3. cvs: rrr, [id number]. res: clear to auscultation ,no rhonchii or wheezing abd: no rebound or guarding ,nt, bs present. ext pulses present , no cyanosis. neuro: axo3 , nonfocal. DS: Data Data Completed and Pending Completed studies during hospitalization [Text1]: Pending at discharge 09/11/23 00:17 Surgical [PTH] Routine Pending studies at discharge: Pending at discharge 09/13/23 14:52 Surgical [PTH] Routine Labs on day of discharge: Laboratory Results - last 24 hr 09/16/23 09/16/23 06:00 17:38 Urine Color Yellow Urine Appearance Clear Urine pH 6.5 Ur Specific [place] 1.015 Urine Protein Negative Urine Glucose (UA) Negative Urine Ketones Negative Urine Blood Negative Urine Nitrite Negative Ur Leukocyte Esterase Trace H Urine RBC 0-2 Urine WBC 0-5 Ur Squamous Epith Cells 3-5 Urine Bacteria Trace Hyaline Casts 0-2 COVID-19 (MAVIS) Negative COVID-19 Clin Com See Note Imaging Chest x-ray: Radiologist's impression: ITS Impressions Chest X-Ray 09/10/23 20:22 IMPRESSION: Small metallic foreign body in the left epigastric region likely in the stomach. No acute cardiopulmonary process. KUB X-Ray 09/10/23 20:23 IMPRESSION: 2 radiopaque linear blade shaped foreign body seen in the stomach. The bowel gas pattern is nonspecific. Abdomen/Pelvis CT 09/10/23 20:44 IMPRESSION: 2 radiopaque blades seen in the stomach producing beam hardening artifact. There is no free air or free fluid seen at this time on this limited exam. Fleischner guidelines were followed. KUB X-Ray 09/11/23 03:45 IMPRESSION: Progression of 2 radiopaque metallic foreign bodies from stomach into the proximal small bowel or duodenum. However there are also overlying the splenic flexure and possibly of midline within the splenic flexure is not excluded. Recommend continued follow-up. KUB X-Ray 09/11/23 07:50 FINDINGS/IMPRESSION: There are 3 amberly ablates visualized at this time on the right upper quadrant and right epigastric region. They could very well be within the right colon or proximal small bowel loops. Recommend continued follow-up Abdomen/Pelvis CT 09/11/23 14:32 IMPRESSION: Study limitations due to patient's inability to cooperate. 3 ingested foreign bodies, 2 within the ascending colon, one in the transverse colon. No morphologic characteristics consistent with razor blades. Correlate clinically regarding hyperdensities at the medial base of the cecum, question previous appendectomy. 2-3 mm nonobstructing left renal calculus. Fleischner guidelines were followed. KUB X-Ray 09/12/23 09:28 IMPRESSION: 1 of the 3 ingested razor blades now overlies the descending colon. KUB X-Ray 09/13/23 07:29 IMPRESSION: 3 foreign bodies overlying the region of the right lower quadrant. It is possible that the 2 more inferior objects in close proximity to each other overlying the right sacroiliac joint may within the tortuous sigmoid colon, though this is difficult to precisely localize radiographically. The third object which lies superior to this may be within the ascending colon. Guidance Fluoroscopy 09/13/23 16:30 IMPRESSION: Intraoperative fluoroscopic guidance images as above. KUB X-Ray 09/13/23 16:32 IMPRESSION: No radiopaque razor blade seen in the colon. The entire colon is distended with gas. Discharge Plan Discharge Anticipated Discharge Date/Time: 09/17/23 15:38 Patient Disposition: Home, Self-Care Discharge Diagnosis: Foreign body ingestion for possible suicidal attempt Referrals: Erika Khan PA-C [Primary Care Provider] - 1 Week Discharge Medications: Continued trazodone 300 mg Tablet 300 mg PO BEDTIME haloperidol 5 mg tablet 5 mg PO BID PRN (Reason: Agitation) ferrous sulfate [FeroSul] 325 mg (65 mg iron) tablet 325 mg PO DAILY Rx Instructions: with food quetiapine 50 mg tablet extended release 24 hr 50 mg PO BEDTIME lurasidone 20 mg tablet 20 mg PO DAILY clonidine HCl 0.3 mg tablet 0.3 mg PO BEDTIME acetaminophen 500 mg Tablet 1,000 mg PO Q6H PRN (Reason: Pain) ibuprofen 600 mg Tablet 600 mg PO Q6H PRN (Reason: Pain) melatonin 10 mg tablet extended release 10 mg PO BEDTIME Discharge Orders: Discharge Order (Routine); Ordered 09/17/23 Ordered By: Junie Winn Diet: Advance to usual diet Activity on Discharge: As tolerated Stand Alone Forms: Patient Portal Discharge page Care Plan Goals: Patient was admitted for foreign body ingestion with razor blades she tried to do possible suicidal attemp: Patient was placed on bowel rest, NPO, subsequently patient has ED EGD and colonoscopy and post colonoscopy films show no residual foreign body. Subsequently patient tolerated diet abdominal pain resolved. Due to concern of suicidal attempt patient was seen by psych : Cleared by psych, discussed with psych-continue patient's home medications, if any further need for medication change then consider clonazepam p.r.n. as per outpatient psych provider. Health Concerns: As above. Plan of Treatment: As above. Assessment: As above.
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
== END 2023-09-17 16:24 | disposition home or self-care (01) | DRG 254 ==
LOC: HO.ED 09-11 01:25 → HO.EDOVER 09-11 01:58 → HO.S3 09-11 14:56
PROVIDERS: Emergency Medicine; Hospitalist; Internal Medicine; Nurse Practitioner; Physician Assistant; Admitting Provider Internal Medicine; Emergency Provider Emergency Medicine; PCP Physician Assistant; Visit Provider Internal Medicine
PROC: 0DJ08ZZ Inspection of Upper Intestinal Tract, Via Natural or Artificial Opening Endoscopic (ICD-10-PCS; CPT 43235; principal; 2023-09-10 22:30)
PROC: 0DJD8ZZ Inspection of Lower Intestinal Tract, Via Natural or Artificial Opening Endoscopic (ICD-10-PCS; CPT 45378; principal; 2023-09-13 13:30)
DX: T18.2XXA Foreign body in stomach, initial encounter (principal); E66.09 Other obesity due to excess calories; F23 Brief psychotic disorder; F41.9 Anxiety disorder, unspecified; F31.9 Bipolar disorder, unspecified; F43.10 Post-traumatic stress disorder, unspecified; W44.H0XA Other sharp object unspecified, entering into or through a natural orifice, initial encounter; G47.33 Obstructive sleep apnea (adult) (pediatric); Z68.41 Body mass index [BMI] 40.0-44.9, adult; Z20.822 Contact with and (suspected) exposure to COVID-19; Z79.899 Other long term (current) drug therapy
CPT/HCPCS: 36415; 71045; 74018; 74176; 80048; 80053; 80307; 81001; 82248; 83605; 83690; 83735; 84484; 84702; 85025; 85027; 85610; 87040; 87635; 88300; 93005; 99285; 99499; J0737; J1100; J1170; J1200; J1610; J1630; J1790; J2250; J2270; J2371; J2405; J2704; J3010; J3360; S9485

== ENCOUNTER → 2023-09-10 20:22 | Outpatient (BNV) | payer MEDICAID, SELFPAY | PROVIDERS: Admitting Provider Internal Medicine; Emergency Provider Emergency Medicine; Visit Provider Internal Medicine | DX: I45.81 Long QT syndrome (principal) | CPT/HCPCS: 93010 ==

== ENCOUNTER → 2023-09-11 00:44 | Outpatient (BNV) | payer OTHER, SELFPAY | PROVIDERS: Admitting Provider Internal Medicine; Emergency Provider Emergency Medicine; Visit Provider Social Worker | DX: F43.11 Post-traumatic stress disorder, acute (principal) | CPT/HCPCS: 99232; 99233 ==

== ENCOUNTER → 2023-09-11 00:44 | Outpatient (BNV) | payer MEDICAID, SELFPAY | PROVIDERS: Admitting Provider Internal Medicine; Emergency Provider Emergency Medicine; Visit Provider Surgery | DX: T18.9XXA Foreign body of alimentary tract, part unspecified, initial encounter (principal) | CPT/HCPCS: 99222; 99232; 99499 ==

== ENCOUNTER → 2023-09-11 00:44 | Outpatient (BNV) | payer MEDICAID, SELFPAY | PROVIDERS: Admitting Provider Internal Medicine; Emergency Provider Emergency Medicine; Visit Provider Internal Medicine | DX: T18.9XXA Foreign body of alimentary tract, part unspecified, initial encounter (principal); F23 Brief psychotic disorder; F41.9 Anxiety disorder, unspecified; T14.91XA Suicide attempt, initial encounter | CPT/HCPCS: 99223; 99231; 99239; 99499 ==

== ENCOUNTER → 2023-11-09 13:03 | Outpatient (BNVA) | payer MEDICAID, SELFPAY | PROVIDERS: PCP Physician Assistant; Visit Provider Physician Assistant Surgical ==

== ENCOUNTER → 2023-12-28 07:47 | Outpatient (BNVA) | payer MEDICAID, SELFPAY | PROVIDERS: PCP Physician Assistant; Visit Provider Surgery ==

== ENCOUNTER 2024-01-07 11:00 | Outpatient (REF) | payer MEDICAID, SELFPAY ==
--- NOTE | ~2024-01-07 | XR_ITS ---
EXAMINATION: XR CHEST CLINICAL INFORMATION: Morbid (severe) obesity due to excess calories Preop for bariatric surgery COMPARISON: Portable chest 09/10/2023 TECHNIQUE: 2 views of the chest were obtained. FINDINGS: No significant abnormality is noted involving the heart, lungs, mediastinum, bony thorax or soft tissues. XR/XR chest 2V IMPRESSION: No acute cardiopulmonary disease.
--- NOTE | 2024-01-07 11:11 | ECG_ITS ---
Test Reason : E66.01 Blood Pressure : / mmHG Vent. Rate : 085 BPM Atrial Rate : 085 BPM P-R Int : 130 ms QRS Dur : 076 ms QT Int : 378 ms P-R-T Axes : 031 045 034 degrees QTc Int : 449 ms Normal sinus rhythm Normal ECG When compared with ECG of 10-SEP-2023 20:56, No significant change was found Referred By: Noel Pandey Electronically Signed By:JUAN PLATT MD
[2024-01-07 12:22] LABS: Basophils Absolute Auto 0.1 X10*3/uL (0.0-0.2); Basophils Percent Auto 0.6 % (0-2); Eosinophils Absolute Auto 0.2 X10*3/uL (0.0-0.4); Hematocrit 43.4 % (37.0-47.0); Imm Gran Abs Auto 0.04 X10*3/uL (0.00-0.03); Imm Gran Pct Auto 0.4 % (0.0-0.4); Lymphocytes Absolute Auto 2.3 X10*3/uL (1.2-4.9); Lymphocytes Percent Auto 24.3 % (20-40); MANUAL DIFF FLAG SCAN; Mean Corpuscular HGB Conc 32.3 g/dl (31.0-35.0); Mean Corpuscular Hemoglobin 29.7 pg (27.0-33.0); Mean Corpuscular Volume 91.9 fL (80.0-98.0); Monocytes Absolute Auto 0.6 X10*3/uL (0.1-1.2); Monocytes Percent Auto 6.7 % (2-11); Neutrophils Absolute Auto 6.2 x10*3/uL (2.0-8.3); PLT CLUMP 1; Red Blood Count 4.72 X10*6/uL (4.20-5.50); Red Cell Distribution Width 15.6 % (11.0-16.0); SCAN SMEAR FLAG 1
[2024-01-07 12:25] LABS: Estimated Average Glucose 105 mg/dL; Hemoglobin A1c % 5.3 % (<6.0)
[2024-01-07 12:54] LABS: White Blood Count 9.5 X10*3/uL (4.8-10.8)
[2024-01-07 12:56] LABS: Alanine Aminotransferase 9 U/L (0-31); Albumin Level 4.1 g/dL (3.5-5.0); Alkaline Phosphatase 81 U/L (39-117); Anion Gap 14 (12-20); Aspartate Amino Transferase 11 U/L (5-31); Bilirubin Total 0.3 mg/dL (0.0-1.0); Blood Urea Nitrogen 12 mg/dL (9-16); C Reactive Protein 0.39 mg/dL (< or = 0.50); Calcium 9.3 mg/dL (8.4-10.2); Carbon Dioxide 20 mmol/L (22-29); Chloride 108 mmol/L (96-108); Cholesterol 136 mg/dL (<200); Estimated Glomerular Filt Rate > 60; Glucose Random 93 mg/dL (60-115); HDL Cholesterol 37 mg/dL (>40); Iron 45 mcg/dL (30-160); LDL Cholesterol Calculated 83 mg/dL (<100); Percent Iron Saturation 15 % (15-50); Potassium 4.2 mmol/L (3.3-5.1); SLIDE REVIEW VERIFIED; Sodium 138 mmol/L (135-145); Total Iron Binding Capacity 295 mcg/dL (228-428); Total Protein 7.3 g/dL (6.5-8.0); Triglycerides 84 mg/dL (<150); Unsaturated Iron Binding 250 ug/dL
[2024-01-07 13:18] LABS: Folate 8.2 ng/mL (> or = 4.0); Vitamin B12 318 pg/mL (200-900)
[2024-01-07 13:43] LABS: Ferritin 11 ng/mL (10-122); Insulin 11 uU/mL (2-29); TSH reflex Free T4 1.43 uIU/mL (0.32-4.0); Vitamin D 25-OH Total 26.3 ng/mL (>30)
[2024-01-10 16:27] LABS: Zinc 53 mcg/dL (60-130)
[2024-01-11 05:50] LABS: Vitamin A 40 mcg/dL (38-98)
[2024-01-13 15:09] LABS: Vitamin B1 6 nmol/L (8-30)
== END 2024-01-07 11:01 | disposition home or self-care (01) ==
LOC: HO.LAB 11:00
PROVIDERS: Visit Provider Surgery
DX: E66.01 Morbid (severe) obesity due to excess calories (principal)
CPT/HCPCS: 36415; 71046; 80053; 80061; 82306; 82607; 82728; 82746; 83036; 83525; 83540; 84425; 84443; 84590; 84630; 85025; 86140; 93005

== ENCOUNTER → 2024-01-07 11:11 | Outpatient (BNV) | payer MEDICAID, SELFPAY | PROVIDERS: Visit Provider Internal Medicine Cardiovascular Disease | DX: E66.01 Morbid (severe) obesity due to excess calories (principal); Z01.810 Encounter for preprocedural cardiovascular examination | CPT/HCPCS: 93010 ==

== ENCOUNTER 2024-01-28 10:12 | Outpatient (AMB) | payer OTHER, SELFPAY ==
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
== END 2024-01-28 12:31 | disposition home or self-care (01) ==
PROVIDERS: PCP Physician Assistant; Visit Provider Counselor Mental Health
DX: F43.10 Post-traumatic stress disorder, unspecified (principal); F31.9 Bipolar disorder, unspecified; E66.01 Morbid (severe) obesity due to excess calories
CPT/HCPCS: 90791

== ENCOUNTER → 2024-01-28 10:12 | Outpatient (BNVA) | payer MEDICAID, SELFPAY | PROVIDERS: PCP Physician Assistant; Visit Provider Counselor Mental Health ==

== ENCOUNTER 2024-02-11 13:03 | Outpatient (AMB) | payer OTHER, SELFPAY ==
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
== END 2024-02-11 14:05 | disposition home or self-care (01) ==
PROVIDERS: PCP Physician Assistant; Visit Provider Counselor Mental Health
DX: F43.10 Post-traumatic stress disorder, unspecified (principal); F31.9 Bipolar disorder, unspecified; E66.01 Morbid (severe) obesity due to excess calories; F60.3 Borderline personality disorder
CPT/HCPCS: 90834

== ENCOUNTER → 2024-02-11 13:03 | Outpatient (BNVA) | payer MEDICAID, SELFPAY | PROVIDERS: PCP Physician Assistant; Visit Provider Counselor Mental Health ==

== ENCOUNTER 2024-02-19 15:19 | Outpatient (AMB) | payer MEDICAID, SELFPAY ==
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
[2024-02-19 15:32] VITALS: BP 109/73; PULSE 82; TEMP 36.9; O2SAT 99; BMI 43.1
== END 2024-02-19 15:53 | disposition home or self-care (01) ==
PROVIDERS: PCP Physician Assistant; Referring Provider Physician Assistant; Visit Provider Physician Assistant Surgical
DX: E66.01 Morbid (severe) obesity due to excess calories (principal)
CPT/HCPCS: 99213

== ENCOUNTER → 2024-02-19 15:19 | Outpatient (BNVA) | payer MEDICAID, SELFPAY | PROVIDERS: PCP Physician Assistant; Visit Provider Physician Assistant Surgical | DX: E66.01 Morbid (severe) obesity due to excess calories (principal); Z68.41 Body mass index [BMI] 40.0-44.9, adult | CPT/HCPCS: 99212 ==

== ENCOUNTER 2024-03-31 11:51 | Outpatient (AMB) | payer MEDICAID, SELFPAY ==
[2024-03-31 10:57] VITALS: BMI 44.1
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
== END 2024-03-31 13:12 | disposition home or self-care (01) ==
LOC: HO.HBS 11:51
PROVIDERS: PCP Physician Assistant; Visit Provider Physician Assistant Surgical
DX: E66.01 Morbid (severe) obesity due to excess calories (principal)
CPT/HCPCS: 99213

== ENCOUNTER → 2024-03-31 11:51 | Outpatient (BNVA) | payer MEDICAID, SELFPAY | PROVIDERS: PCP Physician Assistant; Visit Provider Physician Assistant Surgical ==

== ENCOUNTER 2024-04-13 03:55 | Emergency (ER) | payer MEDICAID, OTHER, SELFPAY ==
[2024-04-13 03:57] VITALS: BP 116/73; PULSE 98; RESP 18; TEMP 36.8; O2SAT 98; BMI 44.5
--- NOTE | 2024-04-13 04:36 | PC.NURSE ---
[facility] hotline called, answering user requesting to know if the pt really wants an advocate present as pt was seen at [facility] for similar presentation yesterday and pt declined to have an adovate present at that time. This internal communications writer had primary RN ensure if pt wanted an advocate present for this visit and pt refusing advocate at this time. [facility] termite control representative notified.
--- NOTE | 2024-04-13 04:41 | PC.NURSE ---
RANID ALLEN paged and states she will be out to speak with pt.
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
--- NOTE | 2024-04-13 05:17 | PC.NURSE ---
[facility]jor[facility] Nurse, Margie ALLEN, here to see pt
--- NOTE | 2024-04-13 06:54 | PC.NURSE ---
Report given to Madie ALLEN
--- NOTE | 2024-04-13 07:16 | PC.NURSE ---
This RN [facility], requesting that patient receive Plan B, as they can no longer visualize her IUD strings, provider made aware, order placed
[2024-04-13] MEDS: levonorgestreL 1.5 MG TABLET PO (07:26)
[2024-04-13 07:27] VITALS: BP 129/78; PULSE 110; RESP 18; TEMP 36.6; O2SAT 99
[2024-04-13 08:19] VITALS: BP 129/78; PULSE 110; RESP 18; TEMP 36.6; O2SAT 99
== END 2024-04-13 08:20 | disposition home or self-care (01) ==
PROVIDERS: Emergency Provider Emergency Medicine Emergency Medical Services
DX: T76.21XA Adult sexual abuse, suspected, initial encounter (principal); Z79.899 Other long term (current) drug therapy
CPT/HCPCS: 99283; 99284

== ENCOUNTER 2024-05-12 04:16 | Emergency (ER) | payer MEDICAID, SELFPAY ==
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
[2024-05-12 04:28] VITALS: BP 123/80; PULSE 80; RESP 18; TEMP 36.7; O2SAT 100; BMI 43.9
--- OUTSIDE RECORDS SUMMARY | 2024-05-12 05:00 | XMS_ITS | Continuity of Care Document ---
Author Organization [facility] ter Address [address] [place] [id number]- Care Team Providers Care Promotion Officer Name Role Phone Erika Martinez Primary Care Physician Encounter [facility] Date(s): 04/11/24 - 04/18/[address] [address]- Attending Physician: Juliette Robles MD Allergies, Adverse Reactions, Alerts Substance Reaction Severity Status Geodon Facial swelling Chest pain Persistent Moderate Active ziprasidone Facial swelling, chest tightness Active Immunizations Given and Recorded Vaccine Date Status Refusal Reason tetanus/diphtheria/pertussis, acel(Tdap) 03/21/23 Recorded influenza virus vaccine, inactivated 04/05/22 Jan rded influenza virus vaccine, inactivated 06/05/21 Jan rded influenza virus vaccine, inactivated 05/06/21 Jan rded influenza virus vaccine, inactivated 07/29/19 Jan rded influenza virus vaccine, inactivated 04/15/18 Jan rded SARS-CoV-2 (COVID-19) mRNA-1273 vaccine 06/08/21 R ecorded SARS-CoV-2 (COVID-19) mRNA-1273 vaccine 05/06/21 R ecorded SARS-CoV-2 (COVID-19) mRNA BNT-162b2 vac 11/27/20 Recorded SARS-CoV-2 (COVID-19) mRNA BNT-162b2 vac 11/05/20 Recorded Hepatitis A Adult Vaccine 07/29/19 Recorded Hepatitis A Adult Vaccine 10/15/18 Recorded pneumococcal 23-valent vaccine 1 04/11/18 Given 1Early/Late Reason: Med Not Available Medications acetaminophen 325 mg oral tablet 650 mg, By Mouth, Every 6 hours, PRN, Fever, Mild to moderate pain, Refills 0, Maintenance, Other, 08/23/23 14:13:00 EST, Partial fill upon patient request if the prescription is for a schedule II opioid drug. Start Date: 08/23/23 Status: Ordered cloNIDine 0.2 mg oral tablet 0.2 mg, By Mouth, 3 times a day, Refills 0, Maintenance, 11/28/23 11:47:00 EDT, Partial fill upon patient request if the prescription is for a schedule II opioid drug. Start Date: 11/28/23 Status: Ordered cloNIDine 0.3 mg oral tablet 1 tablet = 0.3 mg, By Mouth, Daily at bedtime, # 60 tablet, 0 Refills, Maintenance, 08/21/23 3:34:00 EST, Tablet, Partial fill upon patient request if the prescription is for a schedule II opioid drug. Start Date: 08/21/23 Status: Ordered doxycycline hyclate 50 mg oral capsule 2 capsule = 100 mg, By Mouth, Every 12 hours, for 10 days, # 28 capsule, 0 Refills, Acute 04/22/24 0:17:00 EDT, 04/12/24 0:17:00 EDT, Capsule, [id number], Partial fill upon patient requestif the prescription is for a schedule II opioid layla... Start Date: 04/12/24 Stop Date: 04/22/24 Status: Ordered emtricitabine-tenofovir disoproxil 200 mg-300 mg oral tablet 1 tablet, By Mouth, Daily, # 5 tablet, 0 Refills, Maintenance, 04/12/24 0:10:00 EDT, Tablet, Partial fill upon patient request if the prescription is for a schedule II opioid drug. Start Date: 04/12/24 Status: Ordered lurasidone 60 mg oral tablet = 60 mg, By Mouth, Daily in AM, 0 Refills, Maintenance, 11/28/23 11:48:00 EDT, Tablet, Partial fillupon patient request if the prescription is for a schedule II opioid drug. Start Date: 11/28/23 Status: Ordered MELATONIN PROLONGED RELEASE 10 MG TBCR MELATONIN PROLONGED RELEASE 10 MG TBCR, 1, tablet, By Mouth, Daily at bedtime, 0 Refills, Maintenance, 08/21/23 3:33:00 EST Start Date: 08/21/23 Status: Ordered metroNIDAZOLE 500 mg oral tablet 1 tablet = 500 mg, By Mouth, Every 12 hours, # 14 tablet, 0 Refills, Maintenance, 04/12/24 0:14:00 EDT, Tablet, [id number], Partial fill upon patient request if the prescription is for a schedule II opioid drug., 170, cm, 04/11/24 16:35:00... Start Date: 04/12/24 Status: Ordered olanzapine 5 mg oral tablet 5 mg, By Mouth, Every 6 hours, Refills 0, Maintenance, 11/28/23 11:48:00 EDT, Partial fill upon patient request if the prescription is for a schedule II opioid drug. Start Date: 11/28/23 Status: Ordered Tivicay 50 mg oral tablet 1 tablet = 50 mg, By Mouth, Daily, # 5 tablet, 0 Refills, Maintenance, 04/12/24 0:11:00 EDT, Tablet, Partial fill upon patient request if the prescription is for a schedule II opioid drug. Start Date: 04/12/24 Status: Ordered traZODone 300 mg oral tablet 1 tablet = 300 mg, By Mouth, Daily at bedtime, # 30 tablet, 0 Refills, Maintenance, 11/10/19 15:06:00 EDT, Tablet, [id number], 172, cm, 11/10/19 7:56:00 EDT, Height, 117, kg,11/07/19 9:07:00 EDT, Dry Weight Start Date: 11/10/19 Stop Date: 12/10/19 Status: Ordered Problem List Condition Confirmation Course Effective Dates Status [facility] at Informant Anxiety Confirmed Active Bipolar disorder Confirmed Active Depression with suicidal ideation Confirmed Active Depressive disorder Confirmed Active Obstructive sleep apnea Confirmed Active PTSD - Post-traumatic stress disorder Confirmed Active Severe obesity Confirmed Active Vital Signs Most recent to oldest [Reference Range]: 1 Height 170 cm (04/11/24 4:35 PM) Social History Social History Type Response Smoking Status Never smoker entered on: 11/12/14 Sex Patient Care team information Care Team Personnel Name: Erika Martinez Position: Reference Physician Member Role: PCP Address: Address: [address] [place] [address] Name: Sandra David RN Position: [facility] RN Member Role: Primary Care Nurse Name: Kelle Villalobos Position: [facility] Outreach Member Role: Lifetime Consulting Physician Name: Kaylan Stovall RN Position: [facility] RN Member Role: Primary Care Nurse Name: Maria G Cullen RN Position: [facility] RN Member Role: Primary Care Nurse Name: Marium Nagel RN Position: [facility] RN Member Role: Primary Care Nurse Name: Nini Maguire RN Position: [facility] RN Member Role: Primary Care Nurse Name: Micaela Morrell RN Position: [facility] RN Supv Member Role: Primary Care Nurse Name: Poncho Langford MD Position: [facility] Physician - Behavioral Health Member Role: Lifetime Consulting Physician Address: Address: [address] [place] [id number]- [place] Care Team Related Persons Name: BERTO CANTU Address: home [address] [facility] [address] [place] [address] Name: BERTO HOU Address: home [address] [facility] [address] [place] [address] Name: QUAN HANNAH Address: home [address] [place] [address] Name: BINU ALVARADO Address: home [place], [address] Name: EM MICHAEL Name: HAIDER GERONIMO Address: [place] [address] Name: TAMIR AGUSTIN Address: home [address] [facility] [address] [place] [address] Name: EDDIE DEL VALLE Address: home [address] [address]
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
[2024-05-12 05:32] LABS: Basophils Percent Auto 0.4 % (0-2); Eosinophils Absolute Auto 0.2 X10*3/uL (0.0-0.4); Eosinophils Percent Auto 2.5 % (0-4); Hematocrit 39.4 % (37.0-47.0); Hemoglobin 12.9 g/dl (12.0-16.0); Imm Gran Abs Auto 0.03 X10*3/uL (0.00-0.03); Imm Gran Pct Auto 0.3 % (0.0-0.4); Lymphocytes Absolute Auto 2.4 X10*3/uL (1.2-4.9); Lymphocytes Percent Auto 24.6 % (20-40); MANUAL DIFF FLAG SCAN; Mean Corpuscular HGB Conc 32.7 g/dl (31.0-35.0); Mean Corpuscular Hemoglobin 30.2 pg (27.0-33.0); Mean Corpuscular Volume 92.3 fL (80.0-98.0); Mean Platelet Volume 11.7 fL (9.4-12.3); Monocytes Absolute Auto 0.6 X10*3/uL (0.1-1.2); Monocytes Percent Auto 6.4 % (2-11); Neutrophils Absolute Auto 6.4 x10*3/uL (2.0-8.3); Neutrophils Percent Auto 65.8 % (45-73); PLT CLUMP 1; Red Blood Count 4.27 X10*6/uL (4.20-5.50); Red Cell Distribution Width 14.2 % (11.0-16.0); SCAN SMEAR FLAG 1
[2024-05-12 05:34] LABS: Platelet Count 196 X10*3/uL (160-400); White Blood Count 9.8 X10*3/uL (4.8-10.8)
[2024-05-12 05:49] LABS: Alanine Aminotransferase 10 U/L (0-31); Albumin Level 3.9 g/dL (3.5-5.0); Alkaline Phosphatase 87 U/L (39-117); Anion Gap 15 (12-20); Aspartate Amino Transferase 15 U/L (5-31); Bilirubin Total 0.2 mg/dL (0.0-1.0); Blood Urea Nitrogen 11 mg/dL (9-16); Carbon Dioxide 15 mmol/L (22-29); Chloride 111 mmol/L (96-108); Creatinine Clr Calc Pharmacy 147.1; Estimated Glomerular Filt Rate > 60; Glucose Random 93 mg/dL (60-115); Potassium 4.1 mmol/L (3.3-5.1); Sodium 137 mmol/L (135-145); Total Protein 6.8 g/dL (6.5-8.0)
[2024-05-12 05:56] LABS: SLIDE REVIEW VERIFIED
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
[2024-05-12 08:47] VITALS: BP 111/69; PULSE 66; RESP 20; TEMP 36.8; O2SAT 98
[2024-05-12 09:13] LABS: Appearance Urine Clear; Color Urine Yellow; Glucose Urine UA Negative (Negative); Leukocyte Esterase Urine Negative (Negative); Nitrite Urine Negative (Negative); PH 7.5 (5.0-9.0); Urine Blood Negative (Negative); Urine Ketones Negative (Negative); Urine Protein Negative (Neg-Trace)
[2024-05-12 09:14] LABS: UPreg QC Valid YES; Urine Pregnancy NEGATIVE (NEGATIVE)
[2024-05-12 09:18] LABS: Bacteria Urine None Seen (None Seen); Hyaline Casts Urine 0-2 /LPF (0-2); RBC Urine 0-2 /HPF (0-2); WBC Urine 0-5 /HPF (0-5)
[2024-05-12 09:29] LABS: Ethanol < 10 mg/dL
[2024-05-12 09:34] LABS: HCG Quantitative < 2 mIU/mL
[2024-05-12] MEDS: iohexoL 350 MG/ML 100 ML INFUS..BTL IV (09:35)
[2024-05-12 09:49] LABS: HBS Num1 41.94 mIU/mL (0-7.99); HBc Num1 0.11 S/CO (0.00-0.79); HBsAGNum1 0.51 S/CO (0.00-0.99); HIV AB/AG Nonreactive (Nonreactive); HIV Num 1 0.05 S/CO (0.00-0.99); Hepatitis A Antibody IgM 0.17 Index (0-0.79); Hepatitis B Core Antibody Nonreactive (Nonreactive); Hepatitis B Surface Antigen Negative (Negative); ~HepC Num1 0.11 S/CO (0.00-0.79); ~Hepatitis A Antibody IgM Nonreactive (Nonreactive); ~Hepatitis B Surface Antibody REACTIVE (Nonreactive); ~Hepatitis C Antibody Nonreactive (Nonreactive)
[2024-05-12] MEDS: Acetaminophen 1,000 MG/100 ML PIGGYBACK 400 MG IV (10:23)
[2024-05-12 12:07] LABS: Amphetamine Screen Urine Not Detected (Not Detect); Barbiturates, Urine Not Detected (Not Detect); Benzodiazepines Screen Urine Not Detected (Not Detect); Buprenorphine Scr Not Detected (Not Detect); Cannabinoid Screen Urine Not Detected (Not Detect); Cocaine Screen Urine Not Detected (Not Detect); Fentanyl, urine Not Detected (Not Detect); Methadone Screen, Urine Not Detected (Not Detect); Opiate Screen Urine Not Detected (Not Detect); Oxycodone Screen Urine Not Detected (Not Detect); Phencyclidine Screen Urine Not Detected (Not Detect)
[2024-05-12] MEDS: Ketorolac Tromethamine 15 MG/ML VIAL IVPUSH (12:21)
[2024-05-12 13:00] VITALS: BP 90/59; PULSE 73; RESP 18; TEMP 36.2; O2SAT 98
[2024-05-12] MEDS: 0.9 % Sodium Chloride 1,000 ML 999 ML IV (13:50)
--- NOTE | 2024-05-12 15:32 | PC.NURSE ---
PT left without DC paperwork pt refused to wait for paperwork said she;s been waiting to long,
[2024-05-12 15:34] VITALS: BP 90/59; PULSE 73; RESP 18; TEMP 36.2; O2SAT 98
== END 2024-05-12 15:35 | disposition home or self-care (01) ==
PROVIDERS: Emergency Provider Emergency Medicine; PCP Physician Assistant
DX: T76.21XA Adult sexual abuse, suspected, initial encounter (principal); Y99.9 Unspecified external cause status; R10.9 Unspecified abdominal pain; Z79.899 Other long term (current) drug therapy
CPT/HCPCS: 36415; 74177; 80053; 80307; 81001; 81025; 84702; 85025; 86704; 86706; 86709; 86803; 87340; 87389; 96374; 96375; 99284; 99285; J0131; J1885; Q9967

== ENCOUNTER 2024-06-09 01:17 | Emergency (ER) | payer MEDICAID, SELFPAY ==
[2024-06-09 01:37] VITALS: BP 135/101; PULSE 88; RESP 18; TEMP 36.7; O2SAT 100; BMI 43.8
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
[2024-06-09 04:42] VITALS: BP 106/55; PULSE 79; RESP 18; TEMP 36.6; O2SAT 99
--- OUTSIDE RECORDS SUMMARY | 2024-06-09 04:49 | XMS_ITS | Continuity of Care Document ---
Author Organization [facility] Address [address] [place] [address]- Care Team Providers Care Web Sizer Name Role Phone Erika Martinez Primary Care Physician Encounter [facility] Date(s): 05/15/24 - 05/16/[address] [address]- Discharge Disposition: A-D/C Home Attending Physician: Zach Jenkins MD Admitting Physician: Zach Jenkins MD Referring Physician: Not on Staff, Referring MD Allergies, Adverse Reactions, Alerts Substance Reaction Severity Status Geodon Facial swelling Chest pain Persistent Moderate Active ziprasidone Facial swelling, chest tightness Active Immunizations Given and Recorded Vaccine Date Status Refusal Reason hepatitis B adult vaccine 05/14/24 Given tetanus/diphtheria/pertussis, acel(Tdap) 03/21/23 Recorded influenza virus vaccine, [...] Given 1Early/Late Reason: Med Not Available Medications Abilify 15 mg oral tablet 15 mg, 1, tablet, By Mouth, Daily, Maintenance, 05/05/24 23:17:00 EDT, Partial fill upon patient request if the prescription is for a schedule II opioid drug. Start Date: 05/05/24 Status: Ordered acetaminophen 325 mg oral tablet 650 mg, By Mouth, Every 6 hours, PRN, Fever, Mild to moderate pain, Refills 0, Maintenance, Other, 08/23/23 14:13:00 EST, Partial fill upon patient request if the prescription is for a schedule II opioid drug. Start Date: 08/23/23 Status: Ordered buPROPion 300 mg/24 hours (XL) oral tablet, extended release 1 tablet = 300 mg, Daily, Maintenance, 05/05/24 23:18:00 EDT, Partial fill upon patient request if the prescription is for a schedule II opioid drug. Start Date: 05/05/24 Status: Ordered cloNIDine 0.2 mg oral tablet [...] opioid drug. Start Date: 08/21/23 Status: Ordered dolutegravir 50 mg oral tablet 1 tablet = 50 mg, By Mouth, Daily, # 30 tablet, 0 Refills, Maintenance, 05/06/24 1:06:00 EDT, Tablet, Partial fill upon patient request if the prescription is for a schedule II opioid drug. Start Date: 05/06/24 Status: Ordered doxycycline hyclate 100 mg oral tablet 1 tablet = 100 mg, By Mouth, 2 times a day, for 7 days, # 14 tablet, 0 Refills, Acute 05/20/24 23:39:00 EDT, 05/13/24 23:39:00 EDT, Tablet, [facility], Partial fill upon patient request ifthe prescription is for a schedule II opioid drug.,... Start Date: 05/13/24 Stop Date: 05/20/24 Status: Ordered emtricitabine-tenofovir disoproxil 200 mg-300 mg [...] 500 mg, By Mouth, Every 12 hours, for 7 days, # 14 tablet, 0 Refills, Acute 05/20/24 23:39:00 EDT, 05/13/24 23:39:00 EDT, Tablet, [facility], Partial fill upon patient request if the prescription is for a schedule II opioid drug.... Start Date: 05/13/24 Stop Date: 05/20/24 Status: Ordered metroNIDAZOLE 500 mg oral tablet 1 tablet = 500 mg, By Mouth, Every 12 hours, # 14 tablet, 0 Refills, Maintenance, 04/12/24 0:14:00 EDT, Tablet, [facility], Partial fill upon patient request [...] 0 Refills, Maintenance, 11/10/19 15:06:00 EDT, Tablet, [id number], 172, cm, 11/10/19 7:56:00 EDT, Height, 117, kg,11/07/19 9:07:00 EDT, Dry Weight Start Date: 11/10/19 Stop Date: 12/10/19 Status: Ordered Truvada 200 mg-300 mg oral tablet 1 tablet, By Mouth, Daily, # 30 tablet, 0 Refills, Maintenance, 05/06/24 1:05:00 EDT, Tablet, Partial fill upon patient request if the prescription is for a schedule II opioid drug. Start Date: 05/06/24 Status: Ordered Problem List Condition Confirmation Course Effective Dates Status [facility] Informant Anxiety Confirmed Active Bipolar disorder Confirmed Active Depression with suicidal ideation Confirmed Active Depressive disorder Confirmed Active Obstructive sleep apnea Confirmed Active PTSD - Post-traumatic stress disorder Confirmed Active Severe obesity Confirmed Active Vital Signs Most recent to oldest [Reference Range]: 1 2 Height 170 cm (05/15/24 9:52 PM) Weight 127 kg (05/15/24 9:52 PM) Oxygen Saturation [94-100 %] 100 % (05/16/24 2:30 AM) 99 % (05/15/24 9:52 PM) Pulse Rate [55-90 bpm] 92 bpm *H* (05/16/24 2:30 AM) 100 bpm *H* (05/15/24 9:52 PM) Blood Pressure [90-138/55-84 mm Hg] 112/ 62mm Hg (05/16/24 2:30 AM) 120/78mm Hg (05/15/24 9:52 PM) Respiratory Rate [16-30 br/min] 16 br/mi n (05/16/24 2:30 AM) 16 br/min (05/15/24 9:52 PM) Temperature [96.8-100.4 DegF] 98.2 DegF (05/16/24 2:30 AM) 97.9 DegF (05/15/24 9:52 PM) Mode of Delivery (Oxygen) Room air (05/16/24 2:30 AM) Room air (05/15/24 9:52 PM) Blood pressure sites Arm, right (05/16/24 2:30 AM) Arm, right (05/15/24 9:52 PM) Temperature Route Oral (05/16/24 2:30 AM) Temporal (05/15/24 9:52 PM) Dry Weight 127 kg (05/15/24 9:52 PM) Weight Obtained Via Standing scale (05/15/24 9:52 PM) Dry Weight Obtained Via Standing scale (05/15/24 9:52 PM) Social History Social History Type Response Smoking Status Never smoker entered on: 11/12/14 Sex Patient Care team information Care Team Personnel Name: Erika Martinez Position: Reference Physician Member Role: PCP Address: Address: [address] [place] [id number] Name: Kelle Villalobos Position: [facility] Outreach Member Role: Lifetime Consulting Physician Name: Kaylan Stovall RN Position: [facility] RN Member Role: Primary Care Nurse Name: Maria G Cullen RN Position: [facility] RN Member Role: Primary Care Nurse Name: Marium Nagel RN Position: [facility] RN Member Role: Primary Care Nurse Name: Nini Maguire RN Position: [facility] RN Member Role: Primary Care Nurse Name: Micaela Morrell RN Position: [facility] RN Supv Member Role: Primary Care Nurse Name: Poncho Langford MD Position: [facility] Physician - Behavioral Health Member Role: Lifetime Consulting Physician Address: Address: [address] [place] [id number]- Care Team Related Persons Name: BERTO CANTU Address: home [address] [facility] [address] [place] [address] Name: BERTO HOU Address: home [address] [facility] [address] [place] [address] Name: QUAN HANNAH Address: home [address] [place] [address] Name: BINU ALVARADO Address: [place] [address] Name: EM MICHAEL Name: HAIDER GERONIMO Address: [place] [address] Name: TAMIR AGUSTIN Address: home [address] [place] [address] Name: EDDIE DEL VALLE Address: home [address] [place] [address]
--- OUTSIDE RECORDS SUMMARY | 2024-06-09 04:49 | XMS_ITS | Continuity of Care Document ---
Author Organization [facility] ter Address [address] [place] [address]- Care Team Providers Care Multiple Drill Operator Name Role Phone Erika Martinez Primary Care Physician Encounter [facility] Date(s): 05/13/24 - 05/20/[address] [address]- Attending Physician: Julianna Durham DO Allergies, Adverse Reactions, Alerts Substance Reaction Severity [...] opioid drug. Start Date: 05/06/24 Status: Ordered emtricitabine-tenofovir disoproxil 200 mg-300 mg [...] 0 Refills, Maintenance, 04/12/24 0:14:00 EDT, Tablet, [facility], Partial fill upon patient request if [...] 0 Refills, Maintenance, 11/10/19 15:06:00 EDT, Tablet, [id number], 172, cm, 11/10/19 7:56:00 EDT, Height, 117, [...] disorder Confirmed Active Severe obesity Confirmed Active Social History Social History Type Response Smoking Status Never smoker entered on: 11/12/14 Sex Patient Care team information Care Team Personnel Name: Erika Martinez Position: Reference Physician Member Role: PCP Address: Address: [address] [place] [id number] Name: Kelle Villalobos Position: [facility] Outreach Member Role: Lifetime Consulting Physician Name: Kaylan Stovall RN Position: [facility] RN Member Role: Primary Care Nurse Name: Maria G Cullen RN Position: [facility] RN Member Role: Primary Care Nurse Name: Marium Nagel RN Position: [facility] RN Member Role: Primary Care Nurse Name: Nini Maguire RN Position: [facility] RN Member Role: Primary Care Nurse Name: Micaela Morrell RN Position: [facility] RN Supv Member Role: Primary Care Nurse Name: Poncho Langford MD Position: [facility] Physician - Behavioral Health Member Role: Lifetime Consulting Physician Address: Address: [address] [place] [address]- Care Team Related Persons Name: BERTO CANTU Address: home [address] [facility] [address] [place] [address] Name: BERTO HOU Address: home [address] [facility] [address] [place] [address] Name: QUAN HANNAH Address: home [address] [place] [address] Name: BINU ALVARADO Address: home [facility] [place], [address] Name: EM MICHAEL Name: HAIDER GERONIMO Address: [place] [address] Name: TAMIR AGUSTIN Address: home [address] [facility] [address] [place] [address] Name: EDDIE DEL VALLE Address: home [address] [facility] [address] [place] [address]
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
[2024-06-09 05:21] LABS: Appearance Urine Clear; Color Urine Yellow; Glucose Urine UA Negative (Negative); Leukocyte Esterase Urine Small (1+) (Negative); Nitrite Urine Negative (Negative); PH 6.5 (5.0-9.0); UMIC TRIGGER UACC YES; Urine Blood Negative (Negative); Urine Ketones Trace mg/dL (Negative); Urine Protein Negative (Neg-Trace)
--- NOTE | 2024-06-09 05:25 | PC.NURSE ---
LATE ENTRY for 0430 RN to bedside to answer call kat, pt requesting to know when they were coming referring to [facility]. Pt made aware that she has not yet been medically cleared as staff was waiting for a urine sample for testing including at which time she said i told you i want you check my blood . Education provided surrounding labs ordered and how staff can assess for through her urine. Pt said draw my blood and then I'll pee for you once again stating that she wants to have confirmed/denied through blood. Pt aware that she cannot be seen by [facility] until she has been medically cleared and that RN will speak with the MD to request blood testing for be completed.
[2024-06-09 05:33] LABS: Bacteria Urine Trace (None Seen); RBC Urine 0-2 /HPF (0-2); UACC Culture Trigger YES; WBC Urine 0-5 /HPF (0-5)
[2024-06-09 05:45] LABS: HCG Quantitative < 2 mIU/mL
[2024-06-09 06:31] VITALS: BP 121/66; PULSE 64; RESP 18; O2SAT 98
[2024-06-09 06:47] LABS: CT PCR NOT DETECTED (Not Detect.); NG PCR NOT DETECTED (Not Detect.)
[2024-06-09 06:58] VITALS: BP 121/66; PULSE 64; RESP 18; TEMP -17.7; TEMP 0; O2SAT 98
--- NOTE | 2024-06-09 07:05 | PC.NURSE ---
Late Entry for 629 RN and MD to bedside to provide patient with results and to make her aware that she was going to be relocated for kit collection and she made staff aware that she no longer wanted the kit. RN offered/inquired 3 separate times and each time she confirmed that she did not want the kit completed. pt was A&Ox3 and without dsitress noted
== END 2024-06-09 06:45 | disposition home or self-care (01) ==
PROVIDERS: Emergency Provider Internal Medicine; PCP Physician Assistant
DX: T76.21XA Adult sexual abuse, suspected, initial encounter (principal); X58.XXXA Exposure to other specified factors, initial encounter; Y93.89 Activity, other specified; Y92.9 Unspecified place or not applicable; Y99.9 Unspecified external cause status
CPT/HCPCS: 36415; 81001; 84702; 87086; 87088; 87186; 87491; 87591; 99283; 99284

== ENCOUNTER 2024-08-01 09:57 | Outpatient (AMB) | payer OTHER, SELFPAY ==
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
--- OUTSIDE RECORDS SUMMARY | 2024-08-01 10:00 | XMS_ITS | Clinical Summary ---
Author Organization Unknown Care Team Providers Care Cream Hauler Name Role Phone VALERIE NUNEZ Unavailable Unavailable LUZ ALLEN, NATALYA Unavailable Unavailable Payers Payer Name Policy Type Policy Number Effective Date Expira tion Date [employer] [place] [id number] [place] [id number] Problems Condition Name Condition Details Condition Category Status Onset Date Resolution Date Last Treatment Date Treating Clinician Comments BIPOLAR DISORDER, UNSPECIFIED Active 4- 00:00: 00 Allergies, Adverse Reactions, Alerts Allergy Name Allergy Type Status Severity Reaction(s) Onset Date Inactive Date Treating Clinician Comments NKA Propensity to adverse reactions Active 2024-04 13:28:5 2 Medications Ordered Medication Name Filled Medication Name Start Date Stop Date Current Medication? Ordering Clinician Indication Dosage Frequency Signature (SIG) Comments Components acetaminoph en 500 mg tablet 04-24 00:00: 00 07-14 23:59 :00 No [id number] 500 mg EVERY 6 HOURS 500 mg EVERY 6 HOURS (route: oral) Med Classific ation: Analgesic , Anti-infl ammatory or Antipyret ic aripiprazol e 15 mg tablet 04-24 00:00: 00 07-14 23:59 :00 No [id number] 15 mg DAILY 15 mg DAILY (route: oral) Med Classific ation: Central Nervous System Agents bupropion HCl XL 300 mg 24 hr tablet, extended release 04-24 00:00: 00 07-14 23:59 :00 No [id number] 300 mg DAILY 300 mg DAILY (route: oral) Med Classific ation: Central Nervous System Agents chlorhexidi ne gluconate 0.12 % mouthwash 04-24 00:00: 00 07-14 23:59 :00 No [id number] 15 mL 2 TIMES DAILY 15 mL 2 TIMES DAILY (route: mucous membrane) Med Classific ation: Mouth-Thr oat-Denta l - Preparati ons cholecalcif dwight (vitamin D3) 125 mcg (5,000 unit) capsule 04-24 00:00: 00 07-14 23:59 :00 No [id number] 1 capsule DAILY 1 capsule DAILY (route: oral) Med Classific ation: Electroly te Balance-N utritiona l Products clonazepam 0.5 mg tablet 04-24 00:00: 00 07-14 23:59 :00 No [id number] anxiety 0.5 mg BEDTIME 0.5 mg BEDTIME (route: oral) Med Classific ation: Central Nervous System Agents clonidine HCl 0.3 mg tablet 04-24 00:00: 00 07-14 23:59 :00 No [id number] 0.3 mg BEDTIME 0.3 mg BEDTIME (route: oral) Med Classific ation: Cardiovas cular Therapy Agents Colace 100 mg capsule 04-24 00:00: 00 07-14 23:59 :00 No [id number] 100 mg DAILY 100 mg DAILY (route: oral) Med Classific ation: Gastroint estinal Therapy Agents emtricitabi ne 200 mg-tenofovi r disoproxil fumarate 300 mg tablet 04-24 00:00: 00 07-14 23:59 :00 No [id number] 1 tablet DAILY 1 tablet DAILY (route: oral) Med Classific ation: Anti-Infe ctive Agents FeroSul 325 mg (65 mg iron) tablet 04-24 00:00: 00 07-14 23:59 :00 No [id number] 1 tablet DAILY 1 tablet DAILY (route: oral) Med Classific ation: Electroly te Balance-N utritiona l Products hydroxyzine HCl 25 mg tablet 04-24 00:00: 00 07-14 23:59 :00 No [id number] 25 mg 3 TIMES DAILY 25 mg 3 TIMES DAILY (route: oral) Med Classific ation: Central Nervous System Agents ibuprofen 600 mg tablet 04-24 00:00: 00 07-14 23:59 :00 No [id number] 600 mg EVERY 6 HOURS 600 mg EVERY 6 HOURS (route: oral) Med Classific ation: Analgesic , Anti-infl ammatory or Antipyret ic lidocaine HCl 2 % mucosal solution 04-24 00:00: 00 07-14 23:59 :00 No [id number] PAIN 10 mL EVERY 4 HOURS 10 mL EVERY 4 HOURS (route: mucous membrane) Med Classific ation: Mouth-Thr oat-Denta l - Preparati ons mefenamic acid 250 mg capsule 04-24 00:00: 00 07-14 23:59 :00 No [id number] FOR CRAMPS 2 capsule EVERY 8 HOURS 2 capsule EVERY 8 HOURS (route: oral) Med Classific ation: Analgesic , Anti-infl ammatory or Antipyret ic melatonin 10 mg tablet 04-24 00:00: 00 07-14 23:59 :00 No [id number] 10 mg BEDTIME 10 mg BEDTIME (route: oral) Med Classific ation: Central Nervous System Agents thiamine mononitrate (vitamin B1) 100 mg tablet 04-24 00:00: 00 07-14 23:59 :00 No [id number] 100 mg DAILY 100 mg DAILY (route: oral) Med Classific ation: Electroly te Balance-N utritiona l Products Tivicay 50 mg tablet 04-24 00:00: 00 07-14 23:59 :00 No [id number] 1 tablet DAILY 1 tablet DAILY (route: oral) Med Classific ation: Anti-Infe ctive Agents trazodone 300 mg tablet 04-24 00:00: 00 07-14 23:59 :00 No [id number] 300 mg BEDTIME 300 mg BEDTIME (route: oral) Med Classific ation: Central Nervous System Agents valacyclovi r 500 mg tablet 04-24 00:00: 00 07-14 23:59 :00 No [id number] 500 mg DAILY 500 mg DAILY (route: oral) Med Classific ation: Anti-Infe ctive Agents Benadryl Allergy 12.5 mg/5 mL oral liquid 04-29 00:00: 00 07-14 23:59 :00 No [id number] difficulty sleeping 10-20 mL BEDTIME 10-20 mL BEDTIME (route: oral) Med Classific ation: Respirato ry Therapy Agents emtricitabi ne 200 mg-tenofovi r disoproxil fumarate 300 mg tablet 04-29 00:00: 00 07-14 23:59 :00 No [id number] 1 tablet EVERY AM 1 tablet EVERY AM (route: oral) Med Classific ation: Anti-Infe ctive Agents ibuprofen 600 mg tablet 05-02 00:00: 00 07-14 23:59 :00 No [id number] EVERY 6-8 HOURS NEEDED FOR PAIN 1 tablet NEEDED 1 tablet NEEDED (route: oral) Med Classific ation: Analgesic , Anti-infl ammatory or Antipyret ic Vital Signs Vital Name Observation Time Observation Value Commen ts Temperature 2024-05-05 16:09:00.000 97 [degF] Temperature 2024-04-29 14:19:00.000 97 [degF] Temperature 2024-04-24 13:50:00.000 97 [degF] BMI (%) 2024-04-24 13:51:00.000 43 kg/m2 Height 2024-04-24 13:51:00.000 67 [in_us] Pulse 2024-05-05 16:09:00.000 94 /min Pulse 2024-04-29 14:19:00.000 77 /min Pulse 2024-04-24 13:50:00.000 100 /min O2 Saturation (%) 2024-05-05 16:10:00.000 99 % O2 Saturation (%) 2024-04-29 14:21:00.000 100 % O2 Saturation (%) 2024-04-24 13:51:00.000 95 % Respirations 2024-05-05 16:09:00.000 18 /min Respirations 2024-04-29 14:19:00.000 18 /min Respirations 2024-04-24 13:50:00.000 18 /min Weight (lbs) 2024-04-24 13:51:00.000 280 [lb_av] Systolic Blood Pressure 2024-05-05 16:09:00.000 122 mm [Hg] Systolic Blood Pressure 2024-04-29 14:19:00.000 115 mm [Hg] Systolic Blood Pressure 2024-04-24 13:51:00.000 120 mm [Hg] Diastolic Blood Pressure 2024-05-05 16:09:00.000 87 mm [Hg] Diastolic Blood Pressure 2024-04-29 14:19:00.000 79 mm [Hg] Diastolic Blood Pressure 2024-04-24 13:51:00.000 84 mm [Hg] Plan of Treatment Planned Activity Planned Date Details Comments Future Scheduled Test SKILLED NU RSE TO EVALUATE PATIENT, IDENTIFY PRIMARY AND CO-MORBID CONDITIONS CODED PER CODING GUIDELINES, AND DEVELOP PATIENT SPECIFIC PLAN OF CARE THAT INCLUDES PATIENT GOAL FOR HOME HEALTH. [code = SKILLED NURSE TO EVALUATE PATIENT, IDENTIFY PRIMARY AND CO-MORBID CONDITIONS CODED PER CODING GUIDELINES, AND DEVELOP PATIENT SPECIFIC PLAN OF CARE THAT INCLUDES PATIENT GOAL FOR HOME HEALTH.] Future Scheduled Test SKILLED NU RSE WILL MAINTAIN SITUATIONAL AWARENESS FOR SAFETY AND WILL NOTIFY CLINICAL SLATE WORKER AND PHYSICIAN/PROVIDER WITH ANY CHANGE IN CONDITION. [code = SKILLED NURSE WILL MAINTAIN SITUATIONAL AWARENESS FOR SAFETY AND WILL NOTIFY CLINICAL SLATE WORKER AND PHYSICIAN/PROVIDER WITH ANY CHANGE IN CONDITION.] Future Scheduled Test SKILLED NU RSE TO O/A OF PATIENTS MENTAL/BEHAVIORAL STATUS, ASSESS VITAL SIGNS WEEKLY, ALLOW 2 PRNS FOR MEDICATION MANAGEMENT. [code = SKILLED NURSE TO O/A OF PATIENTS MENTAL/BEHAVIORAL STATUS, ASSESS VITAL SIGNS WEEKLY, ALLOW 2 PRNS FOR MEDICATION MANAGEMENT.] Future Scheduled Test PATIENT ADAIR S A RISK OF HOSPITALIZATION AND ED USE. SKILLED NURSE TO ESTABLISH SUPPORT MEASURES TO MINIMIZE RISK OF HOSPITALIZATION AND ED USE, AND INSTRUCT PATIENT/CAREGIVER ON METHODS TO REDUCE AVOIDABLE HOSPITALIZATION AND ED USE. [code = PATIENT HAS A RISK OF HOSPITALIZATION AND ED USE. SKILLED NURSE TO ESTABLISH SUPPORT MEASURES TO MINIMIZE RISK OF HOSPITALIZATION AND ED USE, AND INSTRUCT PATIENT/CAREGIVER ON METHODS TO REDUCE AVOIDABLE HOSPITALIZATION AND ED USE.] Future Scheduled Test SKILLED NU RSE TO ASSESS HIGH RISK PATIENT FOR CHANGE IN CONDITION: MOOD/BEHAVIOR, MISSED MEDICATIONS, CHANGE IN LIVING SITUATION, HOMICIDAL IDEATION, ACTIVE SUBSTANCE USE WITH MOOD ALTERING SUBSTANCES INCLUDING BUT NOT LIMITED TO COCAINE, CRACK, HEROIN, FENTANYL AND ENSURE EARLY IDENTIFICATION TO MAINTAIN SAFETY. SKILLED NURSE WILL MAINTAIN SITUATIONAL AWARENESS FOR SAFETY AND WILL NOTIFY CLINICAL SLATE WORKER AND PHYSICIAN/PROVIDER WITH ANY CHANGE IN CONDITION. [code = SKILLED NURSE TO ASSESS HIGH RISK PATIENT FOR CHANGE IN CONDITION: MOOD/BEHAVIOR, MISSED MEDICATIONS, CHANGE IN LIVING SITUATION, HOMICIDAL IDEATION, ACTIVE SUBSTANCE USE WITH MOOD ALTERING SUBSTANCES INCLUDING BUT NOT LIMITED TO COCAINE, CRACK, HEROIN, FENTANYL AND ENSURE EARLY IDENTIFICATION TO MAINTAIN SAFETY. SKILLED NURSE WILL MAINTAIN SITUATIONAL AWARENESS FOR SAFETY AND WILL NOTIFY CLINICAL SLATE WORKER AND PHYSICIAN/PROVIDER WITH ANY CHANGE IN CONDITION.] Future Scheduled Test SKILLED NU RSE TO PRE-POUR MEDICATION PER MEDICATION LIST WEEKLY. [code = SKILLED NURSE TO PRE-POUR MEDICATION PER MEDICATION LIST WEEKLY.] Future Scheduled Test SKILLED NU RSE FOR O/A OF ALTERED MOOD [code = SKILLED NURSE FOR O/A OF ALTERED MOOD] Future Scheduled Test SKILLED NU RSE TO ASSESS PATIENTS PSYCHOSOCIAL STATUS TO IDENTIFY POTENTIAL ISSUES THAT MAY COMPLICATE THE PROVISION OF THE PLAN OF CARE INCLUDING THE PATIENTS ABILITY TO ACCESS COMMUNITY RESOURCES AND PSYCHOSOCIAL SUPPORT SERVICES. [code = SKILLED NURSE TO ASSESS PATIENTS PSYCHOSOCIAL STATUS TO IDENTIFY POTENTIAL ISSUES THAT MAY COMPLICATE THE PROVISION OF THE PLAN OF CARE INCLUDING THE PATIENTS ABILITY TO ACCESS COMMUNITY RESOURCES AND PSYCHOSOCIAL SUPPORT SERVICES.] Future Scheduled Test SKILLED NU RSE FOR O/A OF GENERAL HEALTH STATUS OF PAIN, CARDIAC, RESPIRATORY, GASTROINTESTINAL, GENITOURINARY, SKIN, NEUROLOGIC, ENDOCRINE SYSTEMS TO IDENTIFY CHANGES ASSOCIATED WITH EXACERBATION FOR EARLY INTERVENTION OF COMPLICATIONS WEEKLY [code = SKILLED NURSE FOR O/A OF GENERAL HEALTH STATUS OF PAIN, CARDIAC, RESPIRATORY, GASTROINTESTINAL, GENITOURINARY, SKIN, NEUROLOGIC, ENDOCRINE SYSTEMS TO IDENTIFY CHANGES ASSOCIATED WITH EXACERBATION FOR EARLY INTERVENTION OF COMPLICATIONS WEEKLY] Goal 2024-05-07 Patient Goal - T O NOT GO TO THE HOSPITAL FOR AT LEAST 1 YEAR Goal Provider Goal - A PLAN OF CARE WILL BE ESTABLISHED THAT MEETS PATIENT'S PRISON NEEDS AND INCLUDES PATIENT GOAL FOR HOME HEALTH. Goal Provider Goal - PATIENT WILL REMAIN SAFE IN THE COMMUNITY AND WILL BE FREE OF DANGER TO SELF AND OTHERS THROUGHOUT THE CERTIFICATION PERIOD. Goal Provider Goal - ALTERED MENTAL/BEHAVIORAL STATUS WILL BE IDENTIFIED PROMPTLY AND INTERVENTION INITIATED QUICKLY TO MINIMIZE ASSOCIATED RISKS THROUGHOUT CERTIFICATION PERIOD. Goal Provider Goal - PATIENT WILL HAVE SUPPORT MEASURES ESTABLISHED TO PREVENT HOSPITALIZATION AND ED USE AND PATIENT/CAREGIVER WILL VERBALIZE/DEMONSTRATE METHODS TO REDUCE AVOIDABLE HOSPITALIZATION AND ED USE BY END OF EPISODE. Goal Provider Goal - HIGH RISK PATIENT WILL REMAIN SAFE IN THE COMMUNITY AND WILL BE FREE FROM DANGER TO SELF AND OTHERS THROUGHOUT CERTIFICATION PERIOD. Goal Provider Goal - PATIENT WILL COMPLY WITH MEDICATION WHEN SKILLED NURSE PRE-POURS MEDICATION THROUGHOUT CERTIFICATION PERIOD. Goal Provider Goal - PATIENT WILL BE ABLE TO PERFORM DAILY FUNCTIONS AND HAVE OPTIMAL IMPROVEMENT IN MOOD STABILITY THROUGHOUT CERTIFICATION PERIOD. Goal Provider Goal - PSYCHOSOCIAL NEEDS WILL BE IDENTIFIED AND PLAN IMPLEMENTED TO MINIMIZE RISK THROUGHOUT CERTIFICATION PERIOD. Goal Provider Goal - CHANGE IN GENERAL HEALTH STATUS WILL BE IDENTIFIED AND REPORTED TO PHYSICIAN FOR PROMPT INTERVENTION TO MINIMIZE ASSOCIATED RISKS THROUGHOUT CERTIFICATION PERIOD. Reason for Visit INDEPENDENT IN THE COMMUNITY Encounters Start Date/Time End Date/Time Encounter Type Admission Type Attending [facility] Care Department Encounter ID Discharge Date Discharge Status Discharge Condition Discharge Reason Percent Goals Met 2024-04-24 00:00:00 2024-05-07 00:00:00 Outpatient RICKEYMINATALYA BAUER [facility] [id number] 2024-05-07 00:00:00 DISCHARGE TO HOME OR SELF CARE INDEPENDEN T IN THE COMMUNITY SKILLED SERVICES EXCEED WHAT CAN SAFELY BE PROVIDED IN HOME SETTING 37.50
== END 2024-08-01 13:45 | disposition home or self-care (01) ==
PROVIDERS: PCP Physician Assistant; Visit Provider Counselor Mental Health
DX: F43.10 Post-traumatic stress disorder, unspecified (principal)
CPT/HCPCS: 90791

== ENCOUNTER → 2024-08-01 09:57 | Outpatient (BNVA) | payer OTHER, MEDICAID, SELFPAY | PROVIDERS: PCP Physician Assistant; Visit Provider Counselor Mental Health ==

== ENCOUNTER 2024-08-04 11:56 | Outpatient (AMB) | payer MEDICAID, SELFPAY ==
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
--- OUTSIDE RECORDS SUMMARY | 2024-08-04 11:59 | XMS_ITS | Clinical Summary ---
Author Organization Unknown Care Team Providers Care Cardiac Cath Rn Name Role Phone VALERIE NUNEZ Unavailable Unavailable LUZ ALLEN, NATALYA Unavailable Unavailable Payers Payer Name Policy Type Policy Number Effective Date Expira tion Date [employer] [place] [place] [id number] [place] [id number] Problems Condition Name Condition Details Condition Category [...] 04-24 00:00: 00 07-14 23:59 :00 No [id number] 500 mg EVERY 6 HOURS 500 mg EVERY 6 HOURS (route: oral) Med Classific ation: Analgesic , Anti-infl ammatory or Antipyret ic aripiprazol e 15 mg tablet 04-24 00:00: 00 07-14 23:59 :00 No [id number] 15 mg DAILY 15 mg DAILY (route: oral) Med Classific ation: Central Nervous System Agents bupropion HCl XL 300 mg 24 hr tablet, extended release 04-24 00:00: 00 07-14 23:59 :00 No [id number] 300 mg DAILY 300 mg DAILY (route: oral) Med Classific ation: Central Nervous System Agents chlorhexidi ne gluconate 0.12 % mouthwash 04-24 00:00: 00 07-14 23:59 :00 No [id number] 15 mL 2 TIMES DAILY 15 mL 2 TIMES DAILY (route: mucous membrane) Med Classific ation: Mouth-Thr oat-Denta l - Preparati ons cholecalcif dwight (vitamin D3) 125 mcg (5,000 unit) capsule 04-24 00:00: 00 07-14 23:59 :00 No [id number] 1 capsule DAILY 1 capsule DAILY (route: oral) Med Classific ation: Electroly te Balance-N utritiona l Products clonazepam 0.5 mg tablet 04-24 00:00: 00 07-14 23:59 :00 No [id number] anxiety 0.5 mg BEDTIME 0.5 mg BEDTIME (route: oral) Med Classific ation: Central Nervous System Agents clonidine HCl 0.3 mg tablet 04-24 00:00: 00 07-14 23:59 :00 No [id number] 0.3 mg BEDTIME 0.3 mg BEDTIME (route: oral) Med Classific ation: Cardiovas cular Therapy Agents Colace 100 mg capsule 04-24 00:00: 00 07-14 23:59 :00 No [id number] 100 mg DAILY 100 mg DAILY (route: oral) Med Classific ation: Gastroint estinal Therapy Agents emtricitabi ne 200 mg-tenofovi r disoproxil fumarate 300 mg tablet 04-24 00:00: 00 07-14 23:59 :00 No [id number] 1 tablet DAILY 1 tablet DAILY (route: oral) Med Classific ation: Anti-Infe ctive Agents FeroSul 325 mg (65 mg iron) tablet 04-24 00:00: 00 07-14 23:59 :00 No [id number] 1 tablet DAILY 1 tablet DAILY (route: oral) Med Classific ation: Electroly te Balance-N utritiona l Products hydroxyzine HCl 25 mg tablet 04-24 00:00: 00 07-14 23:59 :00 No [id number] 25 mg 3 TIMES DAILY 25 mg 3 TIMES DAILY (route: oral) Med Classific ation: Central Nervous System Agents ibuprofen 600 mg tablet 04-24 00:00: 00 07-14 23:59 :00 No [id number] 600 mg EVERY 6 HOURS 600 mg EVERY 6 HOURS (route: oral) Med Classific ation: Analgesic , Anti-infl ammatory or Antipyret ic lidocaine HCl 2 % mucosal solution 04-24 00:00: 00 07-14 23:59 :00 No [id number] PAIN 10 mL EVERY 4 HOURS 10 mL EVERY 4 HOURS (route: mucous membrane) Med Classific ation: Mouth-Thr oat-Denta l - Preparati ons mefenamic acid 250 mg capsule 04-24 00:00: 00 07-14 23:59 :00 No [id number] FOR CRAMPS 2 capsule EVERY 8 HOURS 2 capsule EVERY 8 HOURS (route: oral) Med Classific ation: Analgesic , Anti-infl ammatory or Antipyret ic melatonin 10 mg tablet 04-24 00:00: 00 07-14 23:59 :00 No [id number] 10 mg BEDTIME 10 mg BEDTIME (route: oral) Med Classific ation: Central Nervous System Agents thiamine mononitrate (vitamin B1) 100 mg tablet 04-24 00:00: 00 07-14 23:59 :00 No [id number] 100 mg DAILY 100 mg DAILY (route: oral) Med Classific ation: Electroly te Balance-N utritiona l Products Tivicay 50 mg tablet 04-24 00:00: 00 07-14 23:59 :00 No [id number] 1 tablet DAILY 1 tablet DAILY (route: oral) Med Classific ation: Anti-Infe ctive Agents trazodone 300 mg tablet 04-24 00:00: 00 07-14 23:59 :00 No [id number] 300 mg BEDTIME 300 mg BEDTIME (route: oral) Med Classific ation: Central Nervous System Agents valacyclovi r 500 mg tablet 04-24 00:00: 00 07-14 23:59 :00 No [id number] 500 mg DAILY 500 mg DAILY (route: oral) Med Classific ation: Anti-Infe ctive Agents Benadryl Allergy 12.5 mg/5 mL oral liquid 04-29 00:00: 00 07-14 23:59 :00 No [id number] difficulty sleeping 10-20 mL BEDTIME 10-20 mL BEDTIME (route: oral) Med Classific ation: Respirato ry Therapy Agents emtricitabi ne 200 mg-tenofovi r disoproxil fumarate 300 mg tablet 04-29 00:00: 00 07-14 23:59 :00 No [id number] 1 tablet EVERY AM 1 tablet EVERY AM (route: oral) Med Classific ation: Anti-Infe ctive Agents ibuprofen 600 mg tablet 05-02 00:00: 00 07-14 23:59 :00 No [id number] EVERY 6-8 HOURS NEEDED FOR PAIN 1 [...] AWARENESS FOR SAFETY AND WILL NOTIFY CLINICAL CHAIR INSPECTOR AND PHYSICIAN/PROVIDER WITH ANY CHANGE IN CONDITION. [code = SKILLED NURSE WILL MAINTAIN SITUATIONAL AWARENESS FOR SAFETY AND WILL NOTIFY CLINICAL CHAIR INSPECTOR AND PHYSICIAN/PROVIDER WITH ANY CHANGE IN CONDITION.] [...] AWARENESS FOR SAFETY AND WILL NOTIFY CLINICAL CHAIR INSPECTOR AND PHYSICIAN/PROVIDER WITH ANY CHANGE IN CONDITION. [...] AWARENESS FOR SAFETY AND WILL NOTIFY CLINICAL CHAIR INSPECTOR AND PHYSICIAN/PROVIDER WITH ANY CHANGE IN CONDITION.] [...] CARE WILL BE ESTABLISHED THAT MEETS PATIENT'S ASSISTED NEEDS AND INCLUDES PATIENT GOAL FOR HOME [...] End Date/Time Encounter Type Admission Type Attending [facility] Care Department Encounter ID Discharge Date Discharge Status Discharge Condition Discharge Reason Percent Goals Met 2024-04-24 00:00:00 2024-05-07 00:00:00 Outpatient RICKEYMINATALYA BAUER [facility] [id number] 2024-05-07 00:00:00 DISCHARGE TO HOME OR SELF CARE INDEPENDEN T IN THE COMMUNITY SKILLED SERVICES EXCEED WHAT CAN SAFELY BE PROVIDED IN HOME SETTING 37.50
--- OUTSIDE RECORDS SUMMARY | 2024-08-04 11:59 | XMS_ITS | Clinical Summary ---
Author Organization Unknown Care Team Providers Care Nurse Consultant Name Role Phone VALERIE NUNEZ Unavailable Unavailable LUZ ALLEN, NATALYA Unavailable Unavailable Payers Payer Name Policy Type Policy Number Effective Date Expira tion Date [employer] [place] [place] [id number] [place] [id number] Problems Condition Name Condition Details Condition Category [...] 04-24 00:00: 00 07-14 23:59 :00 No [id number] 500 mg EVERY 6 HOURS 500 mg EVERY 6 HOURS (route: oral) Med Classific ation: Analgesic , Anti-infl ammatory or Antipyret ic aripiprazol e 15 mg tablet 04-24 00:00: 00 07-14 23:59 :00 No [id number] 15 mg DAILY 15 mg DAILY (route: oral) Med Classific ation: Central Nervous System Agents bupropion HCl XL 300 mg 24 hr tablet, extended release 04-24 00:00: 00 07-14 23:59 :00 No [id number] 300 mg DAILY 300 mg DAILY (route: oral) Med Classific ation: Central Nervous System Agents chlorhexidi ne gluconate 0.12 % mouthwash 04-24 00:00: 00 07-14 23:59 :00 No [id number] 15 mL 2 TIMES DAILY 15 mL 2 TIMES DAILY (route: mucous membrane) Med Classific ation: Mouth-Thr oat-Denta l - Preparati ons cholecalcif dwight (vitamin D3) 125 mcg (5,000 unit) capsule 04-24 00:00: 00 07-14 23:59 :00 No [id number] 1 capsule DAILY 1 capsule DAILY (route: oral) Med Classific ation: Electroly te Balance-N utritiona l Products clonazepam 0.5 mg tablet 04-24 00:00: 00 07-14 23:59 :00 No [id number] anxiety 0.5 mg BEDTIME 0.5 mg BEDTIME (route: oral) Med Classific ation: Central Nervous System Agents clonidine HCl 0.3 mg tablet 04-24 00:00: 00 07-14 23:59 :00 No [id number] 0.3 mg BEDTIME 0.3 mg BEDTIME (route: oral) Med Classific ation: Cardiovas cular Therapy Agents Colace 100 mg capsule 04-24 00:00: 00 07-14 23:59 :00 No [id number] 100 mg DAILY 100 mg DAILY (route: oral) Med Classific ation: Gastroint estinal Therapy Agents emtricitabi ne 200 mg-tenofovi r disoproxil fumarate 300 mg tablet 04-24 00:00: 00 07-14 23:59 :00 No [id number] 1 tablet DAILY 1 tablet DAILY (route: oral) Med Classific ation: Anti-Infe ctive Agents FeroSul 325 mg (65 mg iron) tablet 04-24 00:00: 00 07-14 23:59 :00 No [id number] 1 tablet DAILY 1 tablet DAILY (route: oral) Med Classific ation: Electroly te Balance-N utritiona l Products hydroxyzine HCl 25 mg tablet 04-24 00:00: 00 07-14 23:59 :00 No [id number] 25 mg 3 TIMES DAILY 25 mg 3 TIMES DAILY (route: oral) Med Classific ation: Central Nervous System Agents ibuprofen 600 mg tablet 04-24 00:00: 00 07-14 23:59 :00 No [id number] 600 mg EVERY 6 HOURS 600 mg EVERY 6 HOURS (route: oral) Med Classific ation: Analgesic , Anti-infl ammatory or Antipyret ic lidocaine HCl 2 % mucosal solution 04-24 00:00: 00 07-14 23:59 :00 No [id number] PAIN 10 mL EVERY 4 HOURS 10 mL EVERY 4 HOURS (route: mucous membrane) Med Classific ation: Mouth-Thr oat-Denta l - Preparati ons mefenamic acid 250 mg capsule 04-24 00:00: 00 07-14 23:59 :00 No [id number] FOR CRAMPS 2 capsule EVERY 8 HOURS 2 capsule EVERY 8 HOURS (route: oral) Med Classific ation: Analgesic , Anti-infl ammatory or Antipyret ic melatonin 10 mg tablet 04-24 00:00: 00 07-14 23:59 :00 No [id number] 10 mg BEDTIME 10 mg BEDTIME (route: oral) Med Classific ation: Central Nervous System Agents thiamine mononitrate (vitamin B1) 100 mg tablet 04-24 00:00: 00 07-14 23:59 :00 No [id number] 100 mg DAILY 100 mg DAILY (route: oral) Med Classific ation: Electroly te Balance-N utritiona l Products Tivicay 50 mg tablet 04-24 00:00: 00 07-14 23:59 :00 No [id number] 1 tablet DAILY 1 tablet DAILY (route: oral) Med Classific ation: Anti-Infe ctive Agents trazodone 300 mg tablet 04-24 00:00: 00 07-14 23:59 :00 No [id number] 300 mg BEDTIME 300 mg BEDTIME (route: oral) Med Classific ation: Central Nervous System Agents valacyclovi r 500 mg tablet 04-24 00:00: 00 07-14 23:59 :00 No [id number] 500 mg DAILY 500 mg DAILY (route: oral) Med Classific ation: Anti-Infe ctive Agents Benadryl Allergy 12.5 mg/5 mL oral liquid 04-29 00:00: 00 07-14 23:59 :00 No [id number] difficulty sleeping 10-20 mL BEDTIME 10-20 mL BEDTIME (route: oral) Med Classific ation: Respirato ry Therapy Agents emtricitabi ne 200 mg-tenofovi r disoproxil fumarate 300 mg tablet 04-29 00:00: 00 07-14 23:59 :00 No [id number] 1 tablet EVERY AM 1 tablet EVERY AM (route: oral) Med Classific ation: Anti-Infe ctive Agents ibuprofen 600 mg tablet 05-02 00:00: 00 07-14 23:59 :00 No [id number] EVERY 6-8 HOURS NEEDED FOR PAIN 1 [...] AWARENESS FOR SAFETY AND WILL NOTIFY CLINICAL BOTTOMING ROOM SUPERVISOR AND PHYSICIAN/PROVIDER WITH ANY CHANGE IN CONDITION. [code = SKILLED NURSE WILL MAINTAIN SITUATIONAL AWARENESS FOR SAFETY AND WILL NOTIFY CLINICAL BOTTOMING ROOM SUPERVISOR AND PHYSICIAN/PROVIDER WITH ANY CHANGE IN CONDITION.] [...] AWARENESS FOR SAFETY AND WILL NOTIFY CLINICAL BOTTOMING ROOM SUPERVISOR AND PHYSICIAN/PROVIDER WITH ANY CHANGE IN CONDITION. [...] AWARENESS FOR SAFETY AND WILL NOTIFY CLINICAL BOTTOMING ROOM SUPERVISOR AND PHYSICIAN/PROVIDER WITH ANY CHANGE IN CONDITION.] [...] CARE WILL BE ESTABLISHED THAT MEETS PATIENT'S [facility] NEEDS AND INCLUDES PATIENT GOAL FOR HOME [...] End Date/Time Encounter Type Admission Type Attending [facility] Care Department Encounter ID Discharge Date Discharge Status Discharge Condition Discharge Reason Percent Goals Met 2024-04-24 00:00:00 2024-05-07 00:00:00 Outpatient RICKEYMINATALYA BAUER [facility] [id number] 2024-05-07 00:00:00 DISCHARGE TO HOME OR SELF CARE INDEPENDEN T IN THE COMMUNITY SKILLED SERVICES EXCEED WHAT CAN SAFELY BE PROVIDED IN HOME SETTING 37.50
[2024-08-04 12:03] VITALS: PULSE 87; TEMP 36.9; O2SAT 100; BMI 41.2
== END 2024-08-04 12:57 | disposition home or self-care (01) ==
PROVIDERS: PCP Physician Assistant; Visit Provider Surgery
DX: E66.01 Morbid (severe) obesity due to excess calories (principal)
CPT/HCPCS: 99214

== ENCOUNTER → 2024-08-04 11:56 | Outpatient (BNVA) | payer MEDICAID, SELFPAY | PROVIDERS: PCP Physician Assistant; Visit Provider Surgery | DX: E66.01 Morbid (severe) obesity due to excess calories (principal); Z68.41 Body mass index [BMI] 40.0-44.9, adult | CPT/HCPCS: 99212 ==